=== PATIENT | male | born 1950 | race Caucasian/White ===

== ENCOUNTER 2019-12-17 09:58 | Outpatient (CLI) | payer MEDICARE, MEDICAID, SELFPAY ==
--- NOTE | ~2019-12-17 | XR_ITS ---
EXAMINATION: XR chest 2V 12/17/2019 10:28 INDICATION: Acute bronchitis PROCEDURE: 2 view chest COMPARISON: 04/01/2017 FINDINGS: The lungs are clear. The cardiomediastinal silhouette is within normal limits. There are no pleural effusions. There is no pneumothorax suspected. IMPRESSION: 1: NO ACUTE CARDIOPULMONARY DISEASE. Reviewed, dictated and finalized at location A.
== END 2019-12-17 09:59 | disposition home or self-care (01) ==
LOC: ANHIMG 10:09
PROVIDERS: PCP Emergency Medicine; Visit Provider Emergency Medicine
DX: J20.9 Acute bronchitis, unspecified (principal)
CPT/HCPCS: 71046

== ENCOUNTER 2020-07-27 16:57 | Inpatient (IN) | payer MEDICARE, MEDICAID, SELFPAY ==
--- NOTE | ~2020-07-27 | US_ITS ---
EXAMINATION:US venous doppler LE BI INDICATION:Leg edema TECHNIQUE: Multiple grayscale, color flow and Doppler images of the right and left lower extremity de ep venous systems were obtained and reviewed. COMPARISON:No prior studies for comparison. FINDINGS: The common femoral, superficial femoral and popliteal veins demonstrate normal respiratory variation, augmentation and compressibility. Color flow is also seen within the posterior tibial, pe roneal, greater saphenous and profunda veins. IMPRESSION: 1: No lower extremity deep venous thrombosis. Reviewed, dictated and finalized at location B.
--- NOTE | ~2020-07-27 | CT_ITS ---
EXAMINATION: CTA brain carotid EXAM DATE: 07/27/2020 18:05 INDICATION: Right leg hemiparesis. TECHNIQUE: Noncontrast head CT. Spiral CTA of the carotid arteries was performed with intravenous i njection 100 cc of Omnipaque 350. Axial, coronal, sagittal reformatted images reviewed. Additional r eformatted images created on dedicated 3-D workstation. NASCET comparable standard used to assess th e degree of arterial stenosis. Spiral CT angiogram cerebral arteries performed with the same intrave nous injection of contrast. Source images of the brain CTA transferred to dedicated workstation for 3 -D rotational image creation. Coronal, sagittal maximum intensity pixel images also reviewed. The d ose-length product (DLP) for this examination was 1881.37 mGy-cm. The exposure was tailored accordi ng to patient size, and iterative reconstruction (ASIR) was used as additional dose reduction techniq ue. Comparison is made to prior examination from 06/14/2019. FINDINGS: There is moderate left carotid bulb arterial sclerosis, 30 % stenosis. There is minimal rig ht carotid bulb plaque without stenosis (interval endarterectomy). There is moderate bilateral caroti d siphon arterial sclerosis, calcification is circumferential, causing approximately 20% stenosis on the left. The left A1 segment is not identified. There are bilateral posterior communicating artery d ominant posterior cerebral arteries. The left vertebral artery is occluded with reconstitution at the skull base (finding was present in 2019). There is no carotid or vertebral basilar arterial dissecti on or fibromuscular dysplasia. There are no cerebral artery aneurysms. There is symmetric cerebral ar dorinda arborization. The sagittal, transverse and sigmoid sinuses enhance normally, no venous sinus thr ombosis. Internal cerebral veins also enhance normally. Moderate size old left frontal lobe infarction. Large sized old right middle cerebral artery infarcti on. Small old right frontal lobe infarction. There is no acute intraparenchymal hemorrhage. No evide nce of intraparenchymal brain mass lesion. No evidence of acute infarction. There is no mass effect or midline shift. There is no obstructive hydrocephalus suspected. There are no extra-axial collecti ons. There are no calvarial acute fractures. Mild mucoperiosteal thickening in ethmoid sinuses. The mastoid air cells are aerated. Evaluation of lung apices demonstrate small regions of groundglass opacity, could be acute lung injur y from SARS-CoV-2, other infectious process, or edema. Please clinically correlate. IMPRESSION: 1. No acute intracranial findings. 2. Left carotid bulb 30% stenosis. Left carotid siphon 20% stenosis. 3. Interval right carotid endarterectomy, 0% stenosis. 4. Occluded left vertebral with reconstitution. 5. Scattered small upper lobe groundglass opacities; could be COVID-19, other infectious process, an d/or edema. I discussed no acute intracranial findings, acute lung airspace disease with Blanca Sr MD at 18:21 CDT. Reviewed, dictated and finalized at location A. IMPRESSION: 1. No acute intracranial findings. 2. Left carotid bulb 30% stenosis. Left carotid siphon 20% stenosis. 3. Interval right carotid endarterectomy, 0% stenosis. 4. Occluded left vertebral with reconstitution. 5. Scattered small upper lobe groundglass opacities; could be COVID-19, other infectious process, and/or edema. I discussed no acute intracranial findings, acute lung airspace disease with Liliya Sr MD at 07/27/2020 18:21 CDT.
--- NOTE | ~2020-07-27 | XR_ITS ---
EXAMINATION: XR chest 2V EXAM DATE: 07/27/2020 17:28 INDICATION: weakness/dizzy x3-4days, rt leg swelling/pain TECHNIQUE: Frontal and lateral projections of the chest obtained and reviewed. Comparison is made to prior examination from 12/17/2019. FINDINGS: There is cardiac monitoring device. Bilateral ill-defined right greater than left airspace disease probably acute infectious process or edema. The cardiomediastinal silhouette is prominent bu t magnified on this AP technique. Cardiac silhouette is stable in size compared to prior exam. There is no pneumothorax suspected. There are no pleural effusions. There are bony degenerative changes. IMPRESSION: Development of ill-defined bibasilar edema and/or infection. Reviewed, dictated and finalized at location A.
[2020-07-27 16:56] VITALS: BP 112/55; PULSE 82; RESP 20; TEMP 37.6; O2SAT 96
--- NOTE | 2020-07-27 17:04 | ECG_ITS ---
Measurements Intervals [place] Rate: 80 P: 44 WV: 188 QRS: -24 QRSD: 85 T: 20 QT: 338 QTc: 392 Interpretive Statements SINUS RHYTHM RSR' IN V1 OR V2, CONSIDER RIGHT VENTRICULAR HYPERTROPHY OR RIGHT VCD BASELINE ARTIFACT- II, III, AVR, AVF, V1-V2, V4-V6 BORDERLINE ECG Electronically Signed On 07-27-2020 19:30:02 CDT by Quan Kerr D.O.
[2020-07-27 17:11] LABS: Hematocrit 36.3 % (42.0-52.0); Hemoglobin 12.2 g/dL (14.0-18.0); Mean Corpuscular HGB Conc 33.6 g/dl (32-36); Mean Corpuscular Volume 86.2 fl (80-100); Mean Platelet Volume 9.6 fl (7.4-10.4); Platelet Count Result 203 k/mm3 (150-375); Red Blood Count 4.21 M/mm3 (4.6-6.20); Red Cell Distribution Width 15.1 % (11.5-14.5); White Blood Count 6.1 K/mm3 (4.5-10.0)
--- NOTE | 2020-07-27 17:12 | ED.GENADULT ---
HPI - General Adult General Chief complaint: Weakness Stated complaint: DIZZY,WEAK Time Seen by Provider: 07/27/20 16:59 Source: patient History of Present Illness HPI narrative: Patient is a 70 y/o male complaining of worsening right leg weakness starting this morning. He is not sure what exact time it started. He states that he has chronic right leg weakness due to previous stroke. He was sitting on the commode and had trouble getting up due to right leg weakness. He feels that his right leg is weaker than baseline today. He also has been feeling dizzy and light-headed starting 3 days ago. Related Data Home Medications Medication Instructions Recorded Confirmed albuterol sulfate [Ventolin HFA] 2 puff INHALATION Q4-6H PRN 07/27/20 07/27/20 amlodipine 5 mg PO DAILY 07/27/20 07/27/20 aspirin 325 mg PO DAILY 07/27/20 07/27/20 atorvastatin 10 mg PO HS 07/27/20 07/27/20 buspirone 30 mg PO Q12H 07/27/20 07/27/20 clopidogrel 75 mg PO DAILY 07/27/20 07/27/20 cyanocobalamin (vitamin B-12) 100 mcg MONTHLY 07/27/20 07/27/20 ergocalciferol (vitamin D2) 1,250 mcg PO WEEKLY 07/27/20 07/27/20 [Vitamin D2] famotidine 20 mg PO DAILY 07/27/20 07/27/20 fluticasone propionate 2 spray INTRANASAL DAILY 07/27/20 07/27/20 levothyroxine 175 mcg PO DAILY 07/27/20 07/27/20 loratadine 10 mg PO DAILY 07/27/20 07/27/20 losartan 100 mg PO DAILY 07/27/20 07/27/20 metolazone 5 mg PO DAILY 07/27/20 07/27/20 metoprolol tartrate 25 mg PO BID 07/27/20 07/27/20 montelukast 10 mg PO QPM 07/27/20 07/27/20 sertraline 50 mg PO DAILY 07/27/20 07/27/20 spironolactone 50 mg PO DAILY 07/27/20 07/27/20 tamsulosin 0.4 mg PO HS 07/27/20 07/27/20 venlafaxine 75 mg PO DAILY 07/27/20 07/27/20 Allergies Allergy/AdvReac Type Severity Reaction Status Date / Time Penicillins Allergy Unknown HIVES Verified 07/27/20 17:04 strawberry Allergy Unknown ITCHY Verified 07/27/20 17:04 acetaminophen Allergy Unknown Verified 07/27/20 17:04 [From [facility] 100] Latex, Natural Rubber Allergy Unknown Verified 07/27/20 17:04 propoxyphene Allergy Unknown Verified 07/27/20 17:04 [From [facility]-N 100] Review of Systems Constitutional: Constitutional: Reports as per HPI, Denies chills, Denies fever(s), Denies headache(s) and Denies weakness Eyes: Eyes: Denies blurry vision ENT: Denies headache(s) and Denies neck pain Cardiovascular: Cardiovascular: Denies chest pain and Denies dyspnea Respiratory: Respiratory: Denies cough and Denies dyspnea Gastrointestinal: Gastrointestinal: Denies abdominal pain, Denies diarrhea, Denies nausea and Denies vomiting Genitourinary: Genitourinary: Denies hematuria and Denies dysuria Musculoskeletal: Musculoskeletal: Denies back pain and Denies neck pain Neurologic: Reports dizziness, Denies headache(s) and Reports weakness (right leg) [facility] Past Medical History Medical History (Updated 07/28/20 @ 12:21 by Blanca Sr MD) Antithrombin III deficiency Benign prostatic hyperplasia Carotid artery disease Status post right carotid endarterectomy. CTA on showed 30% left carotid bulb stenosis and 20% left carotid siphon stenosis. 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 Chronic anemia Cognitive dysfunction Coronary artery disease With history of [place] status post PTCA/stent. 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 History of cardiac catheterization With history of PTCA/stent. History of hemorrhoidectomy History of loop recorder History of right-sided carotid endarterectomy (~10/11/16) Family History Family History (Updated 07/28/20 @ 00:59 by Maria D Alexandre PA-C) Other Congestive heart
[2020-07-27 17:23] LABS: Alanine Aminotransferase 29 U/L (4-50); Albumin Level 4.2 g/dL (3.5-5.1); Alkaline Phosphatase 50 U/L (38-126); Anion Gap 10 mmol/L (8-16); Aspartate Amino Transferase 42 U/L (17-59); Bilirubin,Total 0.4 mg/dL (0.2-1.3); Blood Urea Nitrogen 40 mg/dL (9-20); Calcium 8.7 mg/dL (8.4-10.2); Carbon Dioxide 23 mmol/L (22-30); Chloride 98 mmol/L (98-107); Estimated CRCL calculation 61 ml/min; Estimated Glomerular Filt Rate 54; Glucose 110 mg/dL (75-110); Potassium 4.4 mmol/L (3.4-5.0); Sodium 131 mmol/L (137-145)
[2020-07-27 17:34] LABS: Band Neutrophils Percent 13 % (0-6); Lymphocytes Absolute Manual 0.54 K/mm3 (1.1-4.5); Monocytes Absolute Manual 0.48 K/mm3 (0.1-0.90); Monocytes Percent Manual 8 % (3-9); Neutrophils Absolute Manual 5.06 K/mm3 (1.3-6.7); Neutrophils Percent Manual 70 % (46-73); Total Cells Counted 100
[2020-07-27 17:35] LABS: Anisocytosis 2+ (NORMAL); Platelet Estimate Adequate (Adequate)
[2020-07-27 18:04] LABS: Add Urine Microscopic? YES; Appearance Urine Cloudy (Clear); Bacteria Urine Trace /hpf; Bilirubin Urine Negative (Negative); Blood Urine 2+ (Negative); Color Urine Yellow (Yellow); Glucose Urine UA Negative (Negative); Ketones Urine Negative (Negative); Leukocyte Esterase Ur Trace LEU/UL (Negative); Mucus Urine Few /lpf; Nitrate Urine Negative (Negative); Protein Urine Negative (Negative); RBC Urine 51-75 /hpf (0-2); Specific Grav Ur 1.019 (1.001-1.035); Squamous Epithelial Cell Urine Many /hpf (Few); Urobilinogen Urine Negative mg/dL (<2.0)
[2020-07-27 19:15] VITALS: BP 101/65; PULSE 75; RESP 20; TEMP 37; O2SAT 96
[2020-07-27 19:30] VITALS: BP 115/52; PULSE 72; RESP 20; TEMP 36.6; O2SAT 95; BMI 32.9
[2020-07-27 20:00] VITALS: PULSE 76
--- NOTE | 2020-07-27 20:16 | ADMGEN ---
This patient, Emile Scott, was admitted to [facility] Room 328-01. Patient/family oriented to hospital policies and general routines including ID bracelet, bed and alarms, visiting hours, pain management, procedures, bathroom and other care routines, personal items, smoking policy, room service/diet, and visiting hours. Information on how to activate the Rapid Response Team has been discussed. Patient/Family are encouraged to report perceived risks to care and to ask questions if they do not understand what they are told or what they should do.
--- NOTE | 2020-07-27 23:00 | PM.IMHP ---
H&P: HPI History of Present Illness Date/Time: 07/27/20 23:00 Chief complaint: Generalized weakness and dizziness. Narrative: Emile Scott is a 70-year-old male with history of CVA x2 with residual right lower extremity weakness, carotid artery disease status post right carotid endarterectomy, coronary artery disease with history of PTCA/stent, hypertension, hyperlipidemia, and hypothyroidism who presented to the emergency department earlier today via EMS from [facility] for evaluation of generalized weakness and dizziness. He notes progressive weakness over the past 3 to 4 days to the point where he was unable to get himself off of the commode today. He has residual right lower extremity weakness from a previous stroke but notes that it feels much more weak today than it had been previously. Additionally he has had dizziness that he has a difficult time qualifying but it sounds more so like lightheadedness. On exam he has pretty significant bilateral lower extremity edema and he does report that his right leg seems to be more swollen than usual. He has been eating and drinking as per usual but tells me he feels a bit dehydrated. He denies headache, vertigo, acute auditory visual changes, and paresthesias. No chest pain or palpitations. He denies shortness of breath, orthopnea, and PND. He denies cough but did cough several times throughout the interview, a dry hacking cough. No facial droop, dysarthria, or dysphagia. He denies concerns for aspiration. He denies history of congestive heart failure and obstructive sleep apnea. No sick contacts to his knowledge. He does live in assisted living facility but ?they do not tell us if anybody has had COVID or not.? Review of Systems Review of Systems: Narrative: Twelve systems were reviewed with pertinent positives and negatives as per HPI. He does think he has gained a little bit of weight. He is not sure if he has had any recent change in medications. No sinus congestion, rhinorrhea, otalgia, or odynophagia. He denies myalgias and arthralgias. Appetite is good. No nausea, vomiting, or diarrhea. He denies dysuria and change in urine output. No known history of venous thromboembolism. Except as documented, all other systems were reviewed and are negative. [facility] Past Medical History Medical History (Updated 07/28/20 @ 01:17 by Maria D Alexandre PA-C) Antithrombin III deficiency Benign prostatic hyperplasia Carotid artery disease Status post right carotid endarterectomy. CTA on showed 30% left carotid bulb stenosis and 20% left carotid siphon stenosis. 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 Chronic anemia Cognitive dysfunction Coronary artery disease With history of [place] status post PTCA/stent. 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 History of cardiac catheterization With history of PTCA/stent. History of hemorrhoidectomy History of loop recorder History of right-sided carotid endarterectomy (~10/11/16) Family History Family History (Updated 07/28/20 @ 00:59 by Maria D Alexandre PA-C) Other Congestive heart failure Coronary artery disease Diabetes mellitus Social History Social History (Updated 07/28/20 @ 01:01 by Maria D Alexandre PA-C) Social History: Surrogate decision maker: Stacey Perez, friend. Code status: Full code. Smoking status: Former smoker Tobacco type: cigarettes Additional smoking assessment comments: Patient states he smoked one pack of cigarettes a week. Alcohol intake: former Substance use: never Additional living arrangements comments: Lives in assisted living at [facility]
[2020-07-28] VITALS (11 sets, daily range): BP systolic 98–155; BP diastolic 53–104; PULSE 57–97; RESP 18–20; TEMP 36.4–37; O2SAT 93–96
[2020-07-28] MEDS: busPIRone HCL 10 MG TABLET 30 MG PO ×3 (00:36→20:37)
[2020-07-28] MEDS: ATORVASTATIN 10 MG TABLET PO ×2 (00:37→20:37)
[2020-07-28] MEDS: METOPROLOL TARTRATE 25 MG TABLET PO ×3 (00:37→20:38)
[2020-07-28] MEDS: TAMSULOSIN HCL 0.4 MG CAPSULE PO ×2 (00:37→20:39)
[2020-07-28] MEDS: MONTELUKAST SODIUM 10 MG TABLET PO ×2 (00:37→17:26)
--- NOTE | 2020-07-28 01:15 | ECHO_ITS ---
Patient Info Name: Emile Scott Age: 70 years : 1950 Gender: Male Ht: 72 in Wt: 240 lbs BSA: 2.38 m2 HR: 71 bpm BP: 122 / 59 mmHg Heart Rhythm: Sinus Rhythm Technical Quality: Good Exam Date: 07/28/2020 3:00 PM Exam Location: [facility] Patient Status: Inpatient Admit Date: 07/28/2020 Staff Ordering Physician: Maria D Alexandre PA-C General Store Manager: Noble Cintron RDCS, RT Attending Provider: Damir Fu PA-C Referring Physician: Baldomero GRANADOS; Exam Type: CA echo doppler color flow Study Info Indications R60.9 - Edema, unspecified Complete two-dimensional, color flow and Doppler transthoracic echocardiogram is performed. Summary 1. Complete two-dimensional, color flow and Doppler transthoracic echocardiogram is performed. 2. Left ventricular chamber dimension is normal. 3. Left ventricular systolic function is normal, estimated at 60-65%. 4. The left ventricular diastolic function is grade I diastolic dysfunction. 5. The anterior mitral valve leaflet is thickened. No mitral regurgitation. 6. Compared to prior exam from 2018 no significant difference. Left Ventricle Left ventricular chamber dimension is normal. Left ventricular systolic function is normal, estimated at 60-65%. The left ventricular diastolic function is grade I diastolic dysfunction. Right Ventricle Right ventricular chamber dimension is normal. Left Atria Left atrial chamber dimension is normal. Right Atria Right atrial chamber dimension is normal. Aortic Valve The aortic valve is trileaflet. There is mild aortic valve sclerosis. Pulmonic Valve The pulmonic valve is not well visualized. Mitral Valve The mitral valve has thickened leaflets. The anterior mitral valve leaflet is thickened. No mitral regurgitation. Tricuspid Valve The tricuspid valve leaflets are normal. Pericardium/Pleural The pericardium appears normal. Aorta The aortic root size at the sinus of Valsalva is normal. Left Ventricular Outflow Tract Name Value Normal LVOT 2D LVOT Diameter 2.5 cm LVOT Doppler LVOT Peak Velocity 82 cm/s LVOT Peak Gradient 3 mmHg LVOT Mean Gradient 1 mmHg LVOT VTI 14 cm LVOT VTI/AV VTI Ratio 0.5 LVOT Stroke Volume 67 ml LVOT CO 4.9 l/min LVOT CI 2.0 l/min/m2 Mitral Valve Name Value Normal MV Doppler MV Decel [place] 241 cm/s2 MV PHT 81 ms MV Area (PHT) 2.7 cm2 4.0-5.0 MV Diastolic Function MV E Peak Velocity 67 cm
[2020-07-28] MEDS: LEVOTHYROXINE SODIUM 75 MCG TABLET PO (05:31)
[2020-07-28] MEDS: LEVOTHYROXINE SODIUM 100 MCG TABLET PO (05:31)
[2020-07-28 06:08] LABS: Basophils Percent Auto 0.5 % (0.2-1.2); Hemoglobin 11.8 g/dL (14.0-18.0); Immature Granulocyte Absolute 0.04 K/mm3 (0.00-0.031); Immature Granulocyte Percent A 0.9 % (0-0.5); Lymphocytes Absolute Auto 0.65 K/mm3 (0.9-3.2); Lymphocytes Percent Auto 14.9 % (18.3-44.2); Mean Corpuscular HGB Conc 32.8 g/dl (32-36); Mean Corpuscular Hemoglobin 28.1 pg (26-34); Mean Corpuscular Volume 85.7 fl (80-100); Mean Platelet Volume 9.4 fl (7.4-10.4); Monocytes Absolute Auto 0.5 K/mm3 (0.1-0.6); Monocytes Percent Auto 11.2 % (2.6-8.5); Neutrophils Absolute Auto 3.2 K/mm3 (1.3-6.7); Neutrophils Percent Auto 72.5 % (45.5-73.1); Platelet Count Result 188 k/mm3 (150-375); Red Cell Distribution Width 15.1 % (11.5-14.5); White Blood Count 4.4 K/mm3 (4.5-10.0)
[2020-07-28 06:17] LABS: Anion Gap 9 mmol/L (8-16); Blood Urea Nitrogen 38 mg/dL (9-20); CRP 4.3 mg/dL (<1.0); Calcium 8.6 mg/dL (8.4-10.2); Carbon Dioxide 24 mmol/L (22-30); Chloride 98 mmol/L (98-107); Estimated CRCL calculation 60 ml/min; Estimated Glomerular Filt Rate 54; Glucose 97 mg/dL (75-110); Potassium 3.7 mmol/L (3.4-5.0); Sodium 131 mmol/L (137-145)
[2020-07-28 06:23] LABS: NT Pro B Type Natriuretic Pept 81 PG/ML (5-100)
[2020-07-28 06:52] LABS: Anisocytosis 1+ (NORMAL); Microcytosis 1+ (NORMAL); Ovalocytes 1+ (NORMAL); Platelet Estimate Adequate (Adequate)
[2020-07-28] MEDS: ASPIRIN 325 MG ENTERIC TABLET PO (08:04)
[2020-07-28] MEDS: VENLAFAXINE HCL XR 75 MG CAP.ER.24H PO (08:04)
[2020-07-28] MEDS: FAMOTIDINE 20 MG TABLET PO (08:04)
[2020-07-28] MEDS: metOLazone 5 MG TABLET PO (08:04)
[2020-07-28] MEDS: amLODIPine BESYLATE 5 MG TABLET PO (08:05)
[2020-07-28] MEDS: LORATADINE 10 MG TABLET PO (08:05)
[2020-07-28] MEDS: LOSARTAN POTASSIUM 100 MG TABLET PO (08:05)
[2020-07-28] MEDS: CLOPIDOGREL BISULFATE 75 MG TABLET PO (08:05)
[2020-07-28] MEDS: SERTRALINE HCL 50 MG TABLET PO (08:05)
[2020-07-28] MEDS: SPIRONOLACTONE 50 MG TABLET PO (08:06)
[2020-07-28] MEDS: FLUTICASONE PROPIONATE 0.05% NA SPR 16 GM BTL (*BKC) 2 SPRAY NASAL (11:31)
--- NOTE | 2020-07-28 11:45 | PCSTNOTE ---
Please refer to the Bedside Swallow Evaluation in the EMR.
[2020-07-28 13:57] LABS: SARS-CoV-2 RNA PCR Positive
--- NOTE | 2020-07-28 15:07 | PC.NURSE ---
This nurse called [facility] in [place], to find out which loop recorder this patient has. Voicemail left for the nurse that takes care of this patient. Awaiting call back.
--- NOTE | 2020-07-28 15:16 | PM.IMPN ---
Progress Note: A&P Assessment and Plan (1) Right leg weakness: Code(s): R29.898 - Other symptoms and signs involving the musculoskeletal system Status: Acute Assessment and Plan: The patient has been admitted to the hospitalist service for further evaluation of weakness over last several days, focally increasing weakness in the right lower extremity. Patient states this is slightly improved today, although nursing reports patient did not perform well with PT/OT today. Patient tested positive for COVID virus today which could very well be the underlying etiology behind worsening weakness, however CVA not excludable. Given his history of CVA he will be monitor on telemetry and we will obtain a brain MRI and Echo today to rule out acute CVA Will continue with PT/OT Consider Neuro consult if no improvement continue supportive care for COVID Monitor for improvement Consider possible placement at time of discharge for further therapy (2) COVID-19: Code(s): U07.1 - COVID-19 Status: Acute Assessment and Plan: Patient tested given groundglass opacities noted in lung apices. Patient also experiencing a dry cough. He is unaware of any positive COVID contacts at [facility]. Patient is not hypoxic on RA. This could very well account for patient's increasing weakness over the past several days. continue droplet isolation Supportive care with PRN albuterol, mucinex for cough, and PRN tylenol for fevers Supplemental O2 as needed if patient becomes hypoxic Monitor (3) Carotid artery disease: Code(s): I77.9 - Disorder of arteries and arterioles, unspecified Status: Inactive Assessment and Plan: CT of the head and neck did show left carotid artery disease as detailed above. Will continue home dual platelet therapy and statin He will likely need f/u with his vascular surgeon after discharge (4) Occlusion of left vertebral artery: Code(s): I65.02 - Occlusion and stenosis of left vertebral artery Status: Acute Assessment and Plan: CT of the head and neck did show the left vertebral artery is occluded with reconstitution. He denies any dizziness at this time. Will continue home dual platelet therapy and statin F/u with vascular surgeon after discharge (5) Abnormal finding on lung imaging: Code(s): R91.8 - Other nonspecific abnormal finding of lung field Status: Acute Assessment and Plan: Groundglass opacities noted at lung apices. Likely due to positive COVID 19 infection/PNA given his dry cough Continue supportive care for COVID infection Monitor (6) Chronic anemia: Code(s): D64.9 - Anemia, unspecified Status: Acute Assessment and Plan: Appears to be stable with no signs of acute blood loss. Monitor Transfuse PRN (7) Hyponatremia: Code(s): E87.1 - Hypo-osmolality and hyponatremia Status: Acute Assessment and Plan: Na 131 today. stable. Possibly due to hypervolemia Monitor daily (8) Hypertension: Code(s): I10 - Essential (primary) hypertension Status: Inactive Assessment and Plan: BP reasonable today. 120s sys lying. 140s sys when standing Continue home antihypertensives Monitor (9) Hypothyroidism: Code(s): E03.9 - Hypothyroidism, unspecified Status: Inactive Assessment and Plan: TSH WNL Continue home levothyroxine (10) Depression with anxiety: Code(s): F41.8 - Other specified anxiety disorders Status: Inactive Assessment and Plan: No acute issues Continue home medication
--- NOTE | 2020-07-28 15:42 | PC.NURSE ---
TIBURCIO Melchor was called and asked if she new what type of loop recorder this patient had so this patient can have his MRI. Jill stated that she did not know what type of loop recorder the patient has.
--- NOTE | 2020-07-28 16:41 | PC.NURSE ---
This nurse spoke with Kevin in MRI. This patient states he has a loop recorder under his skin but does not know which kind. Kevin in MRI said he would look into weather or not he could do this MRI tomorrow morning and would be calling back with a response. Damir MONTIEL is notified of this.
[2020-07-28] MEDS: guaiFENesin 12 HR 600 MG TABCR 1200 MG PO (20:37)
[2020-07-29] VITALS: BP 100/50; PULSE 63; PULSE 66; RESP 20; TEMP 36.6; O2SAT 93
[2020-07-29 04:00] VITALS: BP 114/66; PULSE 70; PULSE 71; RESP 22; TEMP 36.3; O2SAT 94
[2020-07-29] MEDS: LEVOTHYROXINE SODIUM 75 MCG TABLET PO (05:33)
[2020-07-29] MEDS: LEVOTHYROXINE SODIUM 100 MCG TABLET PO (05:33)
[2020-07-29 06:33] LABS: Basophils Percent Auto 0.3 % (0.2-1.2); Eosinophils Percent Auto 0.2 % (0-4.4); Hematocrit 34.5 % (42.0-52.0); Hemoglobin 11.2 g/dL (14.0-18.0); Immature Granulocyte Absolute 0.03 K/mm3 (0.00-0.031); Immature Granulocyte Percent A 0.5 % (0-0.5); Lymphocytes Absolute Auto 0.79 K/mm3 (0.9-3.2); Lymphocytes Percent Auto 13.8 % (18.3-44.2); Mean Corpuscular HGB Conc 32.5 g/dl (32-36); Mean Corpuscular Hemoglobin 28.4 pg (26-34); Mean Corpuscular Volume 87.6 fl (80-100); Mean Platelet Volume 9.6 fl (7.4-10.4); Monocytes Absolute Auto 0.5 K/mm3 (0.1-0.6); Monocytes Percent Auto 7.9 % (2.6-8.5); Neutrophils Absolute Auto 4.4 K/mm3 (1.3-6.7); Neutrophils Percent Auto 77.3 % (45.5-73.1); Platelet Count Result 190 k/mm3 (150-375); Red Blood Count 3.94 M/mm3 (4.6-6.20); Red Cell Distribution Width 15.1 % (11.5-14.5); White Blood Count 5.7 K/mm3 (4.5-10.0)
[2020-07-29 06:53] LABS: Alanine Aminotransferase 28 U/L (4-50); Albumin Level 3.4 g/dL (3.5-5.1); Alkaline Phosphatase 50 U/L (38-126); Anion Gap 8 mmol/L (8-16); Aspartate Amino Transferase 56 U/L (17-59); Bilirubin,Total 0.5 mg/dL (0.2-1.3); Blood Urea Nitrogen 40 mg/dL (9-20); Calcium 8.4 mg/dL (8.4-10.2); Carbon Dioxide 27 mmol/L (22-30); Chloride 97 mmol/L (98-107); Estimated CRCL calculation 59 ml/min; Estimated Glomerular Filt Rate 50; Glucose 94 mg/dL (75-110); Lactate Dehydrogenase 608 U/L (313-618); Magnesium 2.2 mg/dL (1.6-2.3); Potassium 3.5 mmol/L (3.4-5.0); Sodium 132 mmol/L (137-145)
[2020-07-29 08:00] VITALS: BP 110/65; PULSE 68; PULSE 72; RESP 16; TEMP 36.3; O2SAT 94
[2020-07-29 09:49] VITALS: PULSE 72
[2020-07-29] MEDS: METOPROLOL TARTRATE 25 MG TABLET PO (09:49)
[2020-07-29] MEDS: ENOXAPARIN 40 MG/0.4 ML SYRINGE SUB-Q (09:49)
[2020-07-29] MEDS: FLUTICASONE PROPIONATE 0.05% NA SPR 16 GM BTL (*BKC) 2 SPRAY NASAL (09:49)
[2020-07-29] MEDS: CLOPIDOGREL BISULFATE 75 MG TABLET PO (09:49)
[2020-07-29] MEDS: busPIRone HCL 10 MG TABLET 30 MG PO (09:50)
[2020-07-29] MEDS: metOLazone 5 MG TABLET PO (09:50)
[2020-07-29] MEDS: FAMOTIDINE 20 MG TABLET PO (09:50)
[2020-07-29] MEDS: guaiFENesin 12 HR 600 MG TABCR 1200 MG PO (09:50)
[2020-07-29] MEDS: FINASTERIDE 5 MG TABLET PO (09:50)
[2020-07-29] MEDS: SERTRALINE HCL 50 MG TABLET PO (09:51)
[2020-07-29] MEDS: ASPIRIN 325 MG ENTERIC TABLET PO (09:51)
[2020-07-29] MEDS: amLODIPine BESYLATE 5 MG TABLET PO (09:51)
[2020-07-29] MEDS: LORATADINE 10 MG TABLET PO (09:51)
[2020-07-29] MEDS: SPIRONOLACTONE 50 MG TABLET PO (09:51)
[2020-07-29] MEDS: LOSARTAN POTASSIUM 100 MG TABLET PO (09:51)
[2020-07-29] MEDS: VENLAFAXINE HCL XR 75 MG CAP.ER.24H PO (09:51)
[2020-07-29] MEDS: ACETAMINOPHEN 325 MG TABLET 650 MG PO (09:55)
--- NOTE | 2020-07-29 10:53 | PM.DS ---
DS: Admitting Diagnosis Admitting Diagnosis Admitting Diagnosis: Generalized weakness and dizziness. DS: Discharge Diagnosis Discharge Diagnosis (1) Right leg weakness: Code(s): R29.898 - Other symptoms and signs involving the musculoskeletal system Status: Acute Assessment and Plan: The patient has been admitted to the hospitalist service for further evaluation of weakness over last several days, focally increasing weakness in the right lower extremity. Patient states this has improved again today. Patient tested positive for COVID this hospital stay which could very well be the underlying etiology behind worsening weakness. Acute CVA felt to be less likely given CTA head and neck results; patient unable to obtain brain MRI given loop recorder. Given recent COVID positive testing, and likely resultant weakness, patient would benefit from PT/OT at [facility] for further rehab prior to returning to [facility] Will continue with PT/OT Will discharge today to [facility] for further PT/OT continue supportive care for COVID F/u with PCP and Neurologist as outpatient (2) COVID-19: Code(s): U07.1 - COVID-19 Status: Acute Assessment and Plan: Patient tested given groundglass opacities noted in lung apices. Patient also experiencing a dry cough which he thinks has improved. He is unaware of any positive COVID contacts at [facility]. Patient is not hypoxic on RA again today. This could very well account for patient's increasing weakness over the past several days. continue isolation at SNF facility Supportive care with PRN albuterol, mucinex for cough, and PRN tylenol for fevers F/u with PCP (3) Carotid artery disease: Code(s): I77.9 - Disorder of arteries and arterioles, unspecified Status: Inactive Assessment and Plan: CT of the head and neck did show left carotid artery disease as detailed above. Will continue home dual platelet therapy and statin He will likely need f/u with his vascular surgeon after discharge (4) Occlusion of left vertebral artery: Code(s): I65.02 - Occlusion and stenosis of left vertebral artery Status: Acute Assessment and Plan: CT of the head and neck did show the left vertebral artery is occluded with reconstitution. He denies any dizziness at this time. Will continue home dual platelet therapy and statin F/u with vascular surgeon after discharge (5) Abnormal finding on lung imaging: Code(s): R91.8 - Other nonspecific abnormal finding of lung field Status: Acute Assessment and Plan: Groundglass opacities noted at lung apices. Likely due to positive COVID 19 infection/PNA given his dry cough Continue supportive care for COVID infection (6) Chronic anemia: Code(s): D64.9 - Anemia, unspecified Status: Acute Assessment and Plan: Appears to be stable with no signs of acute blood loss. F/u with PCP (7) Hyponatremia: Code(s): E87.1 - Hypo-osmolality and hyponatremia Status: Acute Assessment and Plan: Na 132 today. improvement. Possibly due to hypervolemia Will do BMP in 1 week for further monitoring (8) Hypertension: Code(s): I10 - Essential (primary) hypertension Status: Inactive Assessment and Plan: BP reasonable today. 110s sys today Continue home antihypertensives F/u with PCP (9) Hypothyroidism: Code(s): E03.9 - Hypothyroidism, unspecified Status: Inactive Assessment and Plan: TSH WNL Continue home levothyroxine (10) Depression with anxiety: Code(s): F41.8 - Other specified anxiety disorder
[2020-07-29 12:00] VITALS: BP 107/65; PULSE 70; PULSE 86; RESP 18; TEMP 36.6; O2SAT 97
[2020-07-29 16:00] VITALS: BP 107/55; PULSE 77; RESP 16; TEMP 36.6; O2SAT 92
== END 2020-07-29 17:50 | DRG 177 ==
LOC: ANHED 18:50 → ANH3MEDSUR 19:02
PROVIDERS: Physician Assistant; Admitting Provider Family Medicine; Emergency Provider Emergency Medicine; PCP Emergency Medicine; Visit Provider Family Medicine
DX: U07.1 COVID-19 (principal); J12.89 Other viral pneumonia; D68.59 Other primary thrombophilia; E87.1 Hypo-osmolality and hyponatremia; I65.01 Occlusion and stenosis of right vertebral artery; I69.341 Monoplegia of lower limb following cerebral infarction affecting right dominant side; I65.22 Occlusion and stenosis of left carotid artery; R29.898 Other symptoms and signs involving the musculoskeletal system; D64.9 Anemia, unspecified; N40.1 Benign prostatic hyperplasia with lower urinary tract symptoms; R33.8 Other retention of urine; I25.10 Atherosclerotic heart disease of native coronary artery without angina pectoris; I25.2 Old myocardial infarction; R41.9 Unspecified symptoms and signs involving cognitive functions and awareness; F41.8 Other specified anxiety disorders; I10 Essential (primary) hypertension; K21.9 Gastro-esophageal reflux disease without esophagitis; E78.5 Hyperlipidemia, unspecified; E03.9 Hypothyroidism, unspecified; M19.90 Unspecified osteoarthritis, unspecified site; Z87.891 Personal history of nicotine dependence; Z95.5 Presence of coronary angioplasty implant and graft; Z98.890 Other specified postprocedural states
CPT/HCPCS: 36415; 51701; 70496; 70498; 71046; 80048; 80053; 81001; 82728; 83615; 83735; 83880; 84443; 85025; 86140; 87086; 87088; 87635; 92610; 93005; 93306; 93970; 97110; 97161; 97165; 99285; A9270; C9803; G0378; J1650; Q9967; U0003

== ENCOUNTER 2020-12-01 09:23 | Inpatient (IN) | payer MEDICARE, MEDICAID, SELFPAY ==
[2020-12-01] VITALS (57 sets, daily range): BP systolic 56–137; BP diastolic 36–125; PULSE 82–110; RESP 15–27; TEMP 36.8–37.4; O2SAT 77–100; BMI 26.4
--- NOTE | ~2020-12-01 | XR_ITS ---
EXAMINATION: XR chest 1V portable DATE: 12/03/2020 05:23 INDICATION: Septic shock TECHNIQUE: frontal view of the chest was obtained. COMPARISON: Chest radiograph dated 12/01/2020 FINDINGS: Left internal jugular central venous catheter with distal tip at the confluence of the left brachioce phalic vein and the superior vena cava. Lungs are clear with no focal airspace opacities, pulmonary edema, pleural effusion or pneumothorax. The cardiomediastinal silhouette is normal. Left pectoral implantable monitor car operator. IMPRESSION: 1. No acute cardiopulmonary disease. Reviewed, dictated and finalized at location A. IONEER ART
--- NOTE | ~2020-12-01 | NM_ITS ---
EXAMINATION: NM hepatobiliary wo pharm DATE: 12/11/2020 16:11 INDICATION: Elevated liver function tests. Abnormal ultrasound. COMPARISON: Ultrasound dated 12/10/2020 TECHNIQUE: 4 mCi Tc-99m mebrofenin (Choletec) was administered intravenously. Scintigraphic images o f the abdomen were obtained for one hour. At the 1 hour time point 2 mg of morphine was administered IV. FINDINGS: There is normal clearance of radiotracer from the blood pool. There is homogeneous tracer u ptake by the liver. Activity progresses to the common bile duct with activity first evident in the b owel at 15 minutes. There is a persistent photopenic defect in the region of the gallbladder includin g in the 30 minutes following morphine administration which raises concern for acute cholecystitis. S mall amount of refluxed activity is seen in the stomach on the later post morphine administration xenia ges. The activity was administered through a left internal jugular central venous catheter with uncha nged retained activity seen along the course of the catheter seen throughout the course of the study. IMPRESSION: 1. Nonvisualization of the gallbladder including in the 30 minutes following morphine injection whic h could be consistent with acute cholecystitis. Reviewed, dictated and finalized at location B. LOPER RELATIONS MANAGER IMPRESSION: 1. Nonvisualization of the gallbladder including in the 30 minutes following m orphine injection which could be consistent with acute cholecystitis.
--- NOTE | ~2020-12-01 | XR_ITS ---
XR chest 1V portable DATE: 12/01/2020 10:40 INDICATION: Shortness of breath TECHNIQUE: Portable upright AP chest on December 01, 2020 at 1043 hours COMPARISON: 07/27/2020 AP and lateral chest FINDINGS: Patchy infiltrates are noted in the mid and particularly lower lung zones. Differential stewart gnosis includes pneumonia, pulmonary edema, aspiration pneumonitis. Heart size is within normal limits. campus monitor device overlies the lower left chest. There is ao rtic arch calcification and mild aortic unfolding. There is no apparent pleural effusion. No pneumothorax is evident. Bilateral apical capping. There are osteoarthritic changes at the glenohumeral joint. IMPRESSION: Patchy mid and lower lung field infiltrates; differential diagnosis includes pneumonia, p ulmonary edema, aspiration pneumonitis Reviewed, dictated and finalized at location A. T COIL WINDER IMPRESSION: Patchy mid and lower lung field infiltrates; differential diagnosis includes pneumonia, pulmonary edema, aspiration pneumonitis
--- NOTE | ~2020-12-01 | CT_ITS ---
EXAMINATION: CT abdomen pelvis wo con EXAM DATE: 12/12/2020 12:55 INDICATION: RUQ pain, cholecystitis. TECHNIQUE: Spiral CT of the abdomen and pelvis was performed without contrast. Axial, coronal and s agittal images were reviewed. The dose-length product (DLP) for this examination was 919.59 mGy-cm. The exposure was tailored according to patient size (auto mA exposure control), and iterative recons truction (ASIR) was used as additional dose reduction technique. Comparison is made to prior examinat ion from 07/27/2016. Correlation also made to recent HIDA scan and right upper quadrant sonogram. FINDINGS: The liver, spleen, adrenal glands and pancreas are unremarkable. The gallbladder is severe ly distended with extensive adjacent inflammation, appearance is consistent with acute cholecystitis. Bilateral nephrolithiasis. The prostate is unremarkable. The bladder is unremarkable. There is n o retroperitoneal or pelvic lymphadenopathy. There is moderate scattered arteriosclerotic disease. Small bilateral inguinal fat-containing hernias. The appendix is normal. The stomach and small bowel are unremarkable. There is sigmoid colonic redu ndancy and air-fluid level. Mild rectosigmoid wall edema. Correlate for diarrhea, colitis. No free intraperitoneal gas. There is cardiomegaly. There is multi segmental right lower lobe atelectasis. Trace bilateral pleural effusions. Bilateral gynecomastia. The lung bases are unremarkable. There a re no osteoblastic or osteolytic lesions identified. IMPRESSION: 1. Acute cholecystitis. 2. Rectosigmoid fluid and wall edema, mild presacral fat stranding. Consider diarrhea and colitis. 3. Right lower lobe multisegmental atelectasis. Trace pleural effusions. 4. Bilateral nonobstructing calyceal stones. 5. Small inguinal fat-containing hernias. Reviewed, dictated and finalized at location A. ING OPERATOR HELPER IMPRESSION: 1. Acute cholecystitis. 2. Rectosigmoid fluid and wall edema, mild presacral fat stranding. Consider d iarrhea and colitis. 3. Right lower lobe multisegmental atelectasis. Trace pleural effusions. 4. Bilateral nonobstructing calyceal stones. 5. Small inguinal fat-containing hernias.
--- NOTE | ~2020-12-01 | US_ITS ---
EXAMINATION: US right upper quadrant DATE: 12/10/2020 09:23 INDICATION: Abdominal pain. TECHNIQUE: Multiple grayscale and Doppler ultrasound images of the abdomen were obtained. COMPARISON: CT abdomen and pelvis 07/27/2016, abdomen ultrasound 12/02/2020 FINDINGS: The pancreas is obscured by bowel gas. The liver is normal without focal lesion. There is n ormal flow in main portal vein. The gallbladder is distended and contains sludge. Gallbladder wall th ickening is noted. No visible gallstones. There was no sonographic Cintron sign. IMPRESSION: 1. Distended gallbladder with sludge and gallbladder wall thickening, which is indeterminate for acut e cholecystitis. Consider hepatobiliary scintigraphy. Reviewed, dictated and finalized at location A. JACK NOZZLEMAN IMPRESSION: 1. Distended gallbladder with sludge and gallbladder wall thickening, which is indeterminate for acute cholecystitis. Consider hepatobiliary scintigraphy.
--- NOTE | ~2020-12-01 | XR_ITS ---
XR chest port-a-cath/central DATE: 12/01/2020 13:07 INDICATION: Central line placement TECHNIQUE: Portable AP chest on December 01, 2020 at 1308 hours COMPARISON: December 01, 2020 portable AP chest at 1043 hours FINDINGS: There is interval placement of left internal jugular central venous catheter, catheter tip overlying the superior vena cava. No pneumothorax is evident. There is mild bilateral apical capping. front desk monitor device overlies the lower left chest. Normal heart size. Coronary artery stent or coronary artery calcification is noted. Mild aortic unfol ding. Mild infiltrate or atelectasis is suggested in the lower lung zones. No pleural effusion is evident. IMPRESSION: Left internal jugular central venous catheter placement, distal tip overlying superior ve na cava; no evidence of pneumothorax Reviewed, dictated and finalized at Location A. Reviewed, dictated and finalized at location A. OUR STITCHER IMPRESSION: Left internal jugular central venous catheter placement, distal tip overlying superior vena cava; no evidence of pneumothorax
--- NOTE | ~2020-12-01 | US_ITS ---
EXAMINATION: US renal BI EXAM DATE: 12/02/2020 10:06 INDICATION: Acute kidney injury. TECHNIQUE: Multiple grayscale and Doppler images of the kidneys were obtained (by a technologist who performed the scan) and subsequently reviewed. Comparison is made to prior examination from 12/02/2020 . FINDINGS: Suboptimal exam, kidneys poorly visualized. Right kidney: There is normal contour and echogenicity. It measures 9.8 x 4.8 x 4.7 centimeters. Th ere are no focal renal lesions identified. There is no hydronephrosis. Left kidney: There is normal contour and echogenicity. It measures 9.8 x 5.5 x 4.7 centimeters. The re are no focal renal lesions identified. There is no hydronephrosis. Sutton catheter balloon anchor within collapsed bladder. IMPRESSION: 1. Suboptimal exam, but no hydronephrosis suspected. Reviewed, dictated and finalized at location B. CIATE PROGRAMMER
--- NOTE | ~2020-12-01 | US_ITS ---
EXAMINATION: US right upper quadrant DATE: 12/02/2020 10:06 INDICATION: Elevated liver function tests TECHNIQUE: Multiple grayscale and Doppler ultrasound images of the abdomen were obtained. COMPARISON: The abdomen and pelvis dated 07/27/2016 FINDINGS: Visual is portions of the body of the pancreas is normal. The head and tail of the pancreas are obscu red by shadowing gas. Liver has normal echogenicity and contour, with a smooth surface. No liver lesi on identified. No intrahepatic biliary duct dilation suspected. Portal venous flow was seen in the he patopetal, normal direction and has normal Doppler waveform. Suboptimal visualization of the gallblad anamaria which is partially obscured by the ribs. The gallbladder is distended to 5.2 cm in diameter. Mild gallbladder wall thickening measuring up to 3 mm in thickness. No evident shadowing cholelithiasis. Sonographic Cintron sign was reported as negative by the analysis analyst.The common bile duct measures 3 m m in maximal diameter which is normal. IMPRESSION: 1. Suboptimal visualization of the gallbladder which demonstrates mild dilation and mild wall thicken ing but no evident cholelithiasis and with negative Cintron sign to more specifically suggest acute ch olecystitis. In addition to acute cholecystitis the differential for the wall thickening would includ e heart, liver renal failure, sepsis or other generalized edema forming states. If there is clinical concern for acute cholecystitis could consider HIDA scan for further evaluation. 2. No evident intra or extra hepatic biliary ductal dilation with normal caliber common bile duct chiquita suring 3 mm. Reviewed, dictated and finalized at location A. LE BLOWER IMPRESSION: 1. Suboptimal visualization of the gallbladder which demonstrates mild dilation and mild wall thickening but no evident cholelithiasis and with negative Philip y sign to more specifically suggest acute cholecystitis. In addition to acute c holecystitis the differential for the wall thickening would include heart, live r renal failure, sepsis or other generalized edema forming states. If there is clinical concern for acute cholecystitis could consider HIDA scan for further e valuation. 2. No evident intra or extra hepatic biliary ductal dilation with normal calibe r common bile duct measuring 3 mm.
--- NOTE | 2020-12-01 09:26 | ECG_ITS ---
Measurements Intervals [place] Rate: 88 P: 158 NJ: 163 QRS: -24 QRSD: 96 T: 149 QT: 373 QTc: 452 Interpretive Statements SINUS RHYTHM LEFT ATRIAL ENLARGEMENT RSR' IN V1 OR V2, CONSIDER RIGHT VENTRICULAR HYPERTROPHY OR RIGHT VCD BORDERLINE ST-T WAVE ABNORMALITY- INF/HIGH LAT LEADS BASELINE ARTIFACT- I, II, III, AVR, AVL, AVF BORDERLINE ECG Electronically Signed On 12-01-2020 10:56:10 CALENDAR CONTROL CLERK BLOOD BANK by Quan Kerr D.O.
--- NOTE | 2020-12-01 09:30 | ED.GENADULT ---
HPI - General Adult General Chief complaint: Unspecified Stated complaint: low 02 sats History of Present Illness HPI narrative: History limited by aphasia 70 yo male w/ h/o CVA, aphasia, htn, hypothyroidism brought in by EMS from custodial for shortness of breath. He was reportedly dyspneic and hypoxic at the custodial earlier in the morning per EMS. On arrival here he has no complaints and is not hypoxic. He does agree that he had been earlier. He says that he does not know if he has any pain. Related Data Home Medications Medication Instructions Recorded Confirmed albuterol sulfate [Ventolin HFA] 2 puff INHALATION Q4-6H PRN 07/27/20 07/27/20 amlodipine 5 mg PO DAILY 07/27/20 07/27/20 aspirin 325 mg PO DAILY 07/27/20 07/27/20 atorvastatin 10 mg PO HS 07/27/20 07/27/20 buspirone 30 mg PO Q12H 07/27/20 07/27/20 clopidogrel 75 mg PO DAILY 07/27/20 07/27/20 cyanocobalamin (vitamin B-12) 100 mcg MONTHLY 07/27/20 07/27/20 ergocalciferol (vitamin D2) 1,250 mcg PO WEEKLY 07/27/20 07/27/20 [Vitamin D2] famotidine 20 mg PO DAILY 07/27/20 07/27/20 fluticasone propionate 2 spray INTRANASAL DAILY 07/27/20 07/27/20 levothyroxine 175 mcg PO DAILY 07/27/20 07/27/20 loratadine 10 mg PO DAILY 07/27/20 07/27/20 losartan 100 mg PO DAILY 07/27/20 07/27/20 metolazone 5 mg PO DAILY 07/27/20 07/27/20 metoprolol tartrate 25 mg PO BID 07/27/20 07/27/20 montelukast 10 mg PO QPM 07/27/20 07/27/20 sertraline 50 mg PO DAILY 07/27/20 07/27/20 spironolactone 50 mg PO DAILY 07/27/20 07/27/20 tamsulosin 0.4 mg PO HS 07/27/20 07/27/20 venlafaxine 75 mg PO DAILY 07/27/20 07/27/20 Allergies Allergy/AdvReac Type Severity Reaction Status Date / Time Penicillins Allergy Unknown HIVES Verified 07/29/20 10:55 strawberry Allergy Unknown ITCHY Verified 07/29/20 10:55 acetaminophen Allergy Unknown Verified 07/29/20 14:46 [From Darvocet-N 100] Latex, Natural Rubber Allergy Unknown Verified 07/29/20 10:55 propoxyphene Allergy Unknown Verified 07/29/20 10:55 [From Darvocet-N 100] Review of Systems Review of Systems: Narrative: Unobtainable due to aphasia [facility] Past Medical History Medical History Antithrombin III deficiency Benign prostatic hyperplasia Carotid artery disease Status post right carotid endarterectomy. CTA on showed 30% left carotid bulb stenosis and 20% left carotid siphon stenosis. 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 Chronic anemia Cognitive dysfunction Coronary artery disease With history of [place] status post PTCA/stent. 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 History of cardiac catheterization With history of PTCA/stent. History of hemorrhoidectomy History of loop recorder History of right-sided carotid endarterectomy (~10/11/16) Family History Family History Other Congestive heart failure Coronary artery disease Diabetes mellitus Social History Social History Social History: Surrogate decision maker: Staceyanalia Perez, friend. Code status: Full code. Smoking status: Former smoker Tobacco type: cigarettes Additional smoking assessment comments: Patient states he smoked one pack of cigarettes a week. Alcohol intake: former Substance use: never Additional living arrangements comments: Lives in assisted living at [facility]. twice, no children. Additional occupation/education comments: Retired. 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 Spiritual care c
[2020-12-01] MEDS: SODIUM CHLORIDE 0.9% IV 1,000 ML 999 ML IV CONT ×3 (09:47→13:29)
[2020-12-01 09:52] LABS: Basophils Percent Auto 0.2 % (0.2-1.2); Eosinophils Absolute Auto 0.1 K/mm3 (0-0.3); Eosinophils Percent Auto 0.3 % (0-4.4); Hematocrit 36.9 % (42.0-52.0); Hemoglobin 12.5 g/dL (14.0-18.0); Immature Granulocyte Absolute 1.58 K/mm3 (0.00-0.031); Immature Granulocyte Percent A 6.1 % (0-0.5); Lymphocytes Absolute Auto 0.38 K/mm3 (0.9-3.2); Lymphocytes Percent Auto 1.5 % (18.3-44.2); Mean Corpuscular HGB Conc 33.9 g/dl (32-36); Mean Corpuscular Hemoglobin 30.4 pg (26-34); Mean Corpuscular Volume 89.8 fl (80-100); Mean Platelet Volume 9.9 fl (7.4-10.4); Monocytes Absolute Auto 1.1 K/mm3 (0.1-0.6); Neutrophils Percent Auto 87.9 % (45.5-73.1); Nucleated Red Blood Cells Absolute Auto 0.1 K/mm3 (0.0-0.012); Nucleated Red Blood Cells Perc 0.3 % (0.0-0.2); Platelet Count Result 394 k/mm3 (150-375); Red Blood Count 4.11 M/mm3 (4.6-6.20); Red Cell Distribution Width 19.4 % (11.5-14.5); White Blood Count 26.1 K/mm3 (4.5-10.0)
[2020-12-01 10:10] LABS: INR 1.2; Partial Thromboplastin Time 28.4 SECONDS (22.3-36.8); Prothrombin Time 15.6 Seconds (11.1-14.7)
[2020-12-01 10:12] LABS: Lactic Acid Reflex 4.3 mmol/L (0.7-2.1)
[2020-12-01 10:14] LABS: Large Platelets Present; Ovalocytes 1+ (NORMAL); Platelet Estimate Increased (Adequate); Poikilocytosis 1+ (NORMAL)
[2020-12-01 10:15] LABS: Anisocytosis 1+ (NORMAL); Burr Cells 1+ (NORMAL)
--- NOTE | 2020-12-01 10:19 | PC.NURSE ---
lab arrived to draw blood cultures
--- NOTE | 2020-12-01 10:28 | PC.NURSE ---
body builder unable to obtain blood cultures - attempting to redraw blood work that was rejected per lab.
--- NOTE | 2020-12-01 11:26 | PC.NURSE ---
Unable to obtain blood cultures after attempt by 3 people. ERP aware.
[2020-12-01 11:30] LABS: Alanine Aminotransferase 76 U/L (4-50); Albumin Level 2.8 g/dL (3.5-5.1); Alkaline Phosphatase 67 U/L (38-126); Anion Gap 15 mmol/L (8-16); Aspartate Amino Transferase 100 U/L (17-59); Bilirubin,Total 0.8 mg/dL (0.2-1.3); Blood Urea Nitrogen 98 mg/dL (9-20); Calcium 7.5 mg/dL (8.4-10.2); Carbon Dioxide 11 mmol/L (22-30); Chloride 107 mmol/L (98-107); Estimated CRCL calculation 16 ml/min; Estimated Glomerular Filt Rate 12; Glucose 116 mg/dL (75-110); Potassium 4.8 mmol/L (3.4-5.0); Sodium 133 mmol/L (137-145)
[2020-12-01 11:33] LABS: Add Urine Microscopic? YES; Appearance Urine Turbid (Clear); Bacteria Urine 4+ /hpf; Bilirubin Urine Negative (Negative); Blood Urine 1+ (Negative); Color Urine Yellow (Yellow); Glucose Urine UA Negative (Negative); Ketones Urine Negative (Negative); Leukocyte Esterase Ur 1+ LEU/UL (Negative); Nitrate Urine Negative (Negative); Protein Urine 2+ mg/dL (Negative); RBC Urine >75 /hpf (0-2); Specific Grav Ur 1.019 (1.001-1.035); WBC Clumps Urine Present /HPF; WBC Urine >75 /hpf
[2020-12-01 11:36] LABS: NT Pro B Type Natriuretic Pept 2590 PG/ML (5-100); Troponin I 0.141 ng/mL (0.000-0.034)
[2020-12-01 12:50] LABS: Reflex Lactic Acid Yes or No Add Lactic
[2020-12-01] MEDS: ONDANSETRON INJ 4 MG/2 ML VIAL (12:55)
[2020-12-01] MEDS: metroNIDAZOLE 500 MG/ISO 100ML 500 MG/100 ML BAG 100 MG IVPB ×2 (12:55→21:11)
[2020-12-01] MEDS: NOREPINEPHRINE 8 MG/D5W 250 ML 8 MG/250 ML BAG 9.38 MG IV CONT (13:15)
[2020-12-01 15:42] LABS: Lactic Acid 1.9 mmol/L (0.7-2.1)
--- NOTE | 2020-12-01 16:17 | ADMGEN ---
This patient, Emile Scott, was admitted to Intensive Care Unit-6. Patient/family oriented to hospital policies and general routines including ID bracelet, bed and alarms, visiting hours, pain management, procedures, bathroom and other care routines, personal items, smoking policy, room service/diet, and visiting hours. Information on how to activate the Rapid Response Team has been discussed. Patient/Family are encouraged to report perceived risks to care and to ask questions if they do not understand what they are told or what they should do.
--- NOTE | 2020-12-01 17:10 | PM.IMHP ---
H&P: HPI History of Present Illness Date/Time: 12/01/20 16:50 Chief Complaint: ?Low oxygen saturation. Narrative: Emile Scott is a 70-year-old male with history of CVA x2 with residual right lower extremity weakness, carotid artery disease status post right carotid endarterectomy, coronary artery disease with history of PTCA/stent, hypertension, hyperlipidemia, and hypothyroidism who presented to the emergency department earlier today via EMS from [facility] with reports of ?low oxygen saturations. It is my understanding that his SpO2 was in the mid 70s and he was placed on oxygen however his sats have been in the high 90s on room air since that time. The patient endorses feeling short of breath earlier however he has no issues with such at this time. He was profoundly hypotensive on arrival to the emergency department and has since been started on Levophed as he did not have significant improvement with IV fluid hydration. He was also found to have an acute kidney injury as well as urinary tract infection, and is being admitted in this setting. At the time my evaluation he is moderately ill in appearance and is lethargic. He does interact but falls asleep easily. He denies fever, chills, sweats, headache, chest pain, current shortness of breath, cough, nausea, vomiting, and diarrhea. Review of Systems Review of Systems: Narrative: 12 systems were reviewed with pertinent positives and negatives as per HPI. Except as documented, all other systems were reviewed and are negative. [facility] Past Medical History Medical History (Updated 12/02/20 @ 03:00 by Maria D Alexandre PA-C) Antithrombin III deficiency Benign prostatic hyperplasia Carotid artery disease Status post right carotid endarterectomy. CTA on 07/27/2020 showed 30% left carotid bulb stenosis and 20% left carotid siphon stenosis. 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 Chronic anemia Cognitive dysfunction Coronary artery disease With history of [place] status post PTCA/stent. COVID-19 (~07/2020) Depression with anxiety Gastroesophageal reflux disease Hyperlipidemia Hypertension Hypothyroidism Occlusion of left vertebral artery Noted on imaging in 07/2020 with reconstitution. 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 History of cardiac catheterization With history of PTCA/stent. History of hemorrhoidectomy History of loop recorder History of right-sided carotid endarterectomy (~10/11/16) Family History Family History Other Congestive heart failure Coronary artery disease Diabetes mellitus Social History Social History (Updated 12/02/20 @ 03:00 by Maria D Alexandre PA-C) Social History: Surrogate decision maker: Stacey Perez, friend. Code status: Full code. Smoking status: Former smoker Tobacco type: cigarettes Additional smoking assessment comments: Patient states he smoked one pack of cigarettes a week. Alcohol intake: never Substance use: never Additional living arrangements comments: Previously lived in assisted living at [facility] although he is now at [facility] after his most recent stroke. twice, no children. Additional occupation/education comments: Retired. He used to work security and drove a med car as well. Gender identity (if verbalized by the patient): Male Sexual Orientation (if Verbalized by the Patient): Straight or Heterosexual Spiritual care concerns: No Meds Home Medications and Allergies Home Medications Medication Instructions Recorded Confirmed Type albuterol sulfate [Ventolin HFA] 2 puff INHALATION Q4-6H PRN 07/27/20 12/01/20 History aspirin 81 mg
[2020-12-01 18:22] LABS: Anion Gap 15 mmol/L (8-16); Blood Urea Nitrogen 95 mg/dL (9-20); Calcium 7.4 mg/dL (8.4-10.2); Carbon Dioxide 14 mmol/L (22-30); Chloride 104 mmol/L (98-107); Creatine Kinase 429 U/L (55-170); Estimated CRCL calculation 18 ml/min; Estimated Glomerular Filt Rate 13; Glucose 110 mg/dL (75-110); Magnesium 1.9 mg/dL (1.6-2.3); Potassium 4.4 mmol/L (3.4-5.0); Sodium 133 mmol/L (137-145)
[2020-12-01 18:47] LABS: Troponin I 0.114 ng/mL (0.000-0.034)
[2020-12-01 19:30] LABS: Free T4 Free Thyroxine 1.19 ng/mL (0.78-2.19)
[2020-12-01 19:35] LABS: Cortisol Random > 123.00 ug/dL
[2020-12-01 20:09] LABS: Alveolar/Arterial O2 Gradient 30.4 mmHg; Base Excess ABG -13.1 mEq/l (+/-2.0); Carboxyhemoglobin 0.3 % THb (0-2.0); Fractional Inspired Oxygen 21 %; HCO3 ABG 10.7 mEq/l (22.0-26.0); Methemoglobin ABG 0.1 %THb (0-1.5); Oxyhemoglobin 96.2 % THb (90.0-100.0); PO2 ABG 94.7 mmHg (80.0-100.0); PO2 FiO2 Ratio Arterial Blood 4.51 %; Reduced Hemoglobin 3.4 %THb (0-5.0); Total Hemoglobin 12.5 g/dL (12.0-18.0); pH ABG 7.333 (7.350-7.450)
[2020-12-01 20:11] LABS: PCO2 ABG 20.6 mmHg (35.0-45.0)
[2020-12-01 20:13] LABS: Device ROOM AIR; Modified Allen's Test Pass; Site Drawn RIGHT RADIAL
[2020-12-01 21:53] LABS: Troponin I 0.124 ng/mL (0.000-0.034)
[2020-12-01] MEDS: SODIUM CHLORIDE 0.9% IV 500 ML IV CONT (22:42)
[2020-12-01] MEDS: SODIUM BICARBONATE 8.4% 150 MEQ in DEXTROSE 5% 1,000 ML 1,000 ML 75 MEQ IV CONT (23:09)
[2020-12-02] VITALS (26 sets, daily range): BP systolic 82–118; BP diastolic 48–78; PULSE 92–109; RESP 14–23; TEMP 36.9–37.6; O2SAT 92–99
[2020-12-02] LABS: SARS-CoV-2 RNA PCR Negative
[2020-12-02 04:44] LABS: Hematocrit 29.8 % (42.0-52.0); Hemoglobin 10.1 g/dL (14.0-18.0); Mean Corpuscular HGB Conc 33.9 g/dl (32-36); Mean Corpuscular Hemoglobin 29.5 pg (26-34); Mean Corpuscular Volume 87.1 fl (80-100); Mean Platelet Volume 9.3 fl (7.4-10.4); Platelet Count Result 271 k/mm3 (150-375); Red Blood Count 3.42 M/mm3 (4.6-6.20); Red Cell Distribution Width 18.7 % (11.5-14.5); White Blood Count 19.8 K/mm3 (4.5-10.0)
[2020-12-02] MEDS: metroNIDAZOLE 500 MG/ISO 100ML 500 MG/100 ML BAG 100 MG IVPB ×3 (05:39→20:56)
[2020-12-02 06:35] LABS: Potassium 3.3 mmol/L (3.4-5.0)
[2020-12-02 06:53] LABS: Alanine Aminotransferase 129 U/L (4-50); Albumin Level 2.6 g/dL (3.5-5.1); Alkaline Phosphatase 66 U/L (38-126); Anion Gap 14 mmol/L (8-16); Aspartate Amino Transferase 133 U/L (17-59); Bilirubin,Total 0.6 mg/dL (0.2-1.3); Blood Urea Nitrogen 91 mg/dL (9-20); Calcium 6.7 mg/dL (8.4-10.2); Carbon Dioxide 14 mmol/L (22-30); Chloride 106 mmol/L (98-107); Creatine Kinase 391 U/L (55-170); Estimated CRCL calculation 20 ml/min; Estimated Glomerular Filt Rate 18; Glucose 110 mg/dL (75-110); Magnesium 1.8 mg/dL (1.6-2.3); Phosphorus 5.9 mg/dL (2.5-4.5); Sodium 134 mmol/L (137-145)
[2020-12-02] MEDS: KCL 20 MEQ/SW 100 ML 100 ML 50 MEQ IVPB (08:04)
--- NOTE | 2020-12-02 08:33 | WPDCNINT ---
Assessment and Plan Assessment and plan (1) Septic shock: Code(s): A41.9 - Sepsis, unspecified organism; R65.21 - Severe sepsis with septic shock Status: Acute Assessment and Plan: Patient presented with shortness of breath, hypotension, acute kidney injury, lactic acidosis, elevated liver enzymes -source likely urine infection and or bacteremia -patient has been adequately fluid-resuscitated, maintenance IV fluids. -continue Levophed, maintain mean arterial pressures greater than 65 mmHg - azithromycin Flagyl and ceftriaxone -blood cultures and urine cultures pending (2) Acute kidney injury: Code(s): N17.9 - Acute kidney failure, unspecified Status: Acute Assessment and Plan: Acute kidney injury likely related to septic shock, hypotension, hypovolemia, diuretic use as patient is on maintenance on and spironolactone at home. Patient also has been on ibuprofen -adequately fluid-resuscitated, improving urine output, creatinine trending down. -metabolic acidosis on bicarb infusion -renal ultrasound has been ordered, will also check urine lytes -continue to monitor renal function, electrolytes and urine -low potassium, replaced (3) Urinary tract infection: Code(s): N39.0 - Urinary tract infection, site not specified Status: Acute Assessment and Plan: UA reflective of UTI, await culture results, continue antibiotics as above (4) Elevated LFTs: Code(s): R79.89 - Other specified abnormal findings of blood chemistry Status: Acute Assessment and Plan: Will obtain right upper quadrant ultrasound and hepatitis panel -possible gallbladder disease (5) DVT prophylaxis: Code(s): Z29.9 - Encounter for prophylactic measures, unspecified Status: Acute Assessment and Plan: SCDs Additional Plan Discussed with patient and updated him with his condition and plan of care. Code status: Full code Critical care time spent: 46 minutes Due to a high probability of clinically significant, life threatening deterioration, the patient required my highest level of preparedness to intervene emergently and I personally spent this critical care time directly and personally managing the patient. This critical care time included obtaining a history; examining the patient; pulse oximetry; ordering and review of studies; arranging urgent treatment with development of a management plan; evaluation of patient's response to treatment; frequent reassessment; and discussions with other providers. It was exclusive of separately billable procedures and treating other patients and teaching time. 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 The records his O2 sats were in the mid 70s any was placed oxygen with improvement in his O2 sats in the 90s. He was found to be hypotensive and was given adequate IV fluids, despite the IV fluids pt remained hypotensive, Central line wa splaced and started on levophed. Pt was transferred to ICU for further management. Pt seen and examined in the ICU this morning. Is awake, alert and follows commands. States he has had a stroke and cannot move is Left lower extremity. Pt remains on Levophed at 5 mcg/min. UO adequate, Pt remains on room air with good O2 sats. UA reflective of UTI, on ABX. Leukocytosis trending down. Pt denies any SOB, chest pain, abdomen pain, nausea or vomiting
[2020-12-02 09:52] LABS: Creatinine Urine 53.7 mg/dL
[2020-12-02] MEDS: FINASTERIDE 5 MG TABLET PO (09:53)
[2020-12-02] MEDS: VENLAFAXINE HCL XR 75 MG CAP.ER.24H PO (09:53)
[2020-12-02] MEDS: predniSONE 10 MG TABLET PO (09:53)
[2020-12-02] MEDS: FAMOTIDINE 20 MG TABLET PO (09:53)
[2020-12-02] MEDS: CLOPIDOGREL BISULFATE 75 MG TABLET PO (09:53)
[2020-12-02] MEDS: ASPIRIN 81 MG ENTERIC TABLET PO (09:53)
[2020-12-02] MEDS: LEVOTHYROXINE SODIUM 125 MCG TABLET PO (09:54)
[2020-12-02 10:00] LABS: Potassium Urine Random 26.6 meq/L; Sodium Urine Random 73 meq/L
[2020-12-02 10:41] LABS: CRP 34.3 mg/dL (<1.0)
[2020-12-02 12:00] LABS: Hepatitis B Surface Antigen Negative (Negative)
[2020-12-02 12:11] LABS: HAV RESULT Negative (Negative); Hepatitis B Core IgM Result Negative (Negative)
[2020-12-02] MEDS: NOREPINEPHRINE 8 MG/D5W 250 ML 8 MG/250 ML BAG 7.5 MG IV CONT (12:16)
[2020-12-02 12:25] LABS: Hepatitis C Virus Antibody Negative (Negative)
[2020-12-02] MEDS: SODIUM CHLORIDE 0.9% IV 500 ML IV CONT (14:13)
[2020-12-02] MEDS: SODIUM BICARBONATE 8.4% 150 MEQ in DEXTROSE 5% 1,000 ML 1,000 ML 75 MEQ IV CONT (14:50)
[2020-12-02] MEDS: SERTRALINE HCL 50 MG TABLET 100 MG PO (20:41)
[2020-12-02] MEDS: ATORVASTATIN 10 MG TABLET PO (20:41)
[2020-12-03] VITALS (14 sets, daily range): BP systolic 91–117; BP diastolic 65–81; PULSE 89–121; RESP 15–24; TEMP 35.6–37.1; O2SAT 18–98
[2020-12-03] MEDS: SODIUM BICARBONATE 8.4% 150 MEQ in DEXTROSE 5% 1,000 ML 1,000 ML 75 MEQ IV CONT (04:19)
[2020-12-03 05:14] LABS: Basophils Absolute Auto 0.1 K/mm3 (0.0-0.1); Basophils Percent Auto 0.4 % (0.2-1.2); Hematocrit 29.8 % (42.0-52.0); Hemoglobin 10.1 g/dL (14.0-18.0); Immature Granulocyte Absolute 0.96 K/mm3 (0.00-0.031); Immature Granulocyte Percent A 4.3 % (0-0.5); Lymphocytes Absolute Auto 0.34 K/mm3 (0.9-3.2); Lymphocytes Percent Auto 1.5 % (18.3-44.2); Mean Corpuscular HGB Conc 33.9 g/dl (32-36); Mean Corpuscular Hemoglobin 29.3 pg (26-34); Mean Corpuscular Volume 86.4 fl (80-100); Mean Platelet Volume 9.7 fl (7.4-10.4); Monocytes Absolute Auto 0.9 K/mm3 (0.1-0.6); Neutrophils Absolute Auto 19.9 K/mm3 (1.3-6.7); Neutrophils Percent Auto 89.8 % (45.5-73.1); Nucleated Red Blood Cells Absolute Auto 0.1 K/mm3 (0.0-0.012); Nucleated Red Blood Cells Perc 0.5 % (0.0-0.2); Platelet Count Result 226 k/mm3 (150-375); Red Blood Count 3.45 M/mm3 (4.6-6.20); Red Cell Distribution Width 18.5 % (11.5-14.5); White Blood Count 22.2 K/mm3 (4.5-10.0)
[2020-12-03 05:31] LABS: Lactic Acid Reflex 1.2 mmol/L (0.7-2.1)
[2020-12-03] MEDS: metroNIDAZOLE 500 MG/ISO 100ML 500 MG/100 ML BAG 100 MG IVPB (05:44)
[2020-12-03 05:51] LABS: Alanine Aminotransferase 96 U/L (4-50); Albumin Level 2.6 g/dL (3.5-5.1); Alkaline Phosphatase 77 U/L (38-126); Anion Gap 6 mmol/L (8-16); Aspartate Amino Transferase 75 U/L (17-59); Bilirubin,Total 0.4 mg/dL (0.2-1.3); Blood Urea Nitrogen 55 mg/dL (9-20); Calcium 7.1 mg/dL (8.4-10.2); Carbon Dioxide 28 mmol/L (22-30); Chloride 101 mmol/L (98-107); Estimated CRCL calculation 48 ml/min; Estimated Glomerular Filt Rate 50; Glucose 124 mg/dL (75-110); Lipase 70 U/L (23-300); Magnesium 1.6 mg/dL (1.6-2.3); Potassium 2.6 mmol/L (3.4-5.0); Sodium 135 mmol/L (137-145)
[2020-12-03] MEDS: POTASSIUM CHLORIDE 20 MEQ PACKET (FOR LIQUID) 40 MEQ PO (06:25)
[2020-12-03 06:30] LABS: Polychromasia 1+ (NORMAL)
[2020-12-03 06:31] LABS: Ovalocytes 2+ (NORMAL); Platelet Estimate Adequate (Adequate)
[2020-12-03] MEDS: ASPIRIN 81 MG ENTERIC TABLET PO (08:10)
[2020-12-03] MEDS: FAMOTIDINE 20 MG TABLET PO (08:10)
[2020-12-03] MEDS: LEVOTHYROXINE SODIUM 125 MCG TABLET PO (08:11)
[2020-12-03] MEDS: VENLAFAXINE HCL XR 75 MG CAP.ER.24H PO (08:11)
[2020-12-03] MEDS: FINASTERIDE 5 MG TABLET PO (08:11)
[2020-12-03] MEDS: CLOPIDOGREL BISULFATE 75 MG TABLET PO (08:11)
[2020-12-03] MEDS: predniSONE 10 MG TABLET PO (08:11)
--- NOTE | 2020-12-03 11:10 | WPDINTPN ---
Progress Note: A&P Assessment and Plan (1) Septic shock: Code(s): A41.9 - Sepsis, unspecified organism; R65.21 - Severe sepsis with septic shock Status: Acute Assessment and Plan: Patient presented with shortness of breath, hypotension, acute kidney injury, lactic acidosis, elevated liver enzymes -Klebsiella UTI -lactic acid 1.2 -OFF LEVOPHED -will discontinue azithromycin and Flagyl. -continue ceftriaxone (2) Acute kidney injury: Code(s): N17.9 - Acute kidney failure, unspecified Status: Acute Assessment and Plan: RESOLVING Acute kidney injury likely related to septic shock, hypotension, hypovolemia, diuretic use as patient is on maintenance on and spironolactone at home. Patient also has been on ibuprofen -adequately fluid-resuscitated, improving urine output, creatinine trending down. -DISCONTINUE BICARB INFUSION -renal ultrasound 12/02/2020: Suboptimal exam with no hydronephrosis suspect -continue to monitor renal function, electrolytes and urine -low potassium, replaced (3) Urinary tract infection: Code(s): N39.0 - Urinary tract infection, site not specified Status: Acute Assessment and Plan: Klebsiella on urine cultures, continue ceftriaxone (4) Elevated LFTs: Code(s): R79.89 - Other specified abnormal findings of blood chemistry Status: Acute Assessment and Plan: Right upper quadrant ultrasound demonstrated did mild dilatation and mild wall thickening but no evidence of cholelithiasis or acute cholecystitis. No evident intra extrahepatic biliary ductal dilatation with normal caliber common bile duct. - LFTs trending down could be related to septic shock -continue to monitor LFTs (5) DVT prophylaxis: Code(s): Z29.9 - Encounter for prophylactic measures, unspecified Status: Acute Assessment and Plan: SCDs Additional Plan Discussed with patient and updated him with his condition and plan of care. Code status: Full code Critical care time spent: 32 minutes Due to a high probability of clinically significant, life threatening deterioration, the patient required my highest level of preparedness to intervene emergently and I personally spent this critical care time directly and personally managing the patient. This critical care time included obtaining a history; examining the patient; pulse oximetry; ordering and review of studies; arranging urgent treatment with development of a management plan; evaluation of patient's response to treatment; frequent reassessment; and discussions with other providers. It was exclusive of separately billable procedures and treating other patients and teaching time. Please see Assessment and Plan section and the rest of the note for further information on patient assessment and treatment Subjective Date/time seen: 12/03/20 11:10 Interval history: Reason for consult: Septic shock, UTI, possible bacteremia 12/03/2020: Patient off Levophed since last night. Output been adequate, creatinine is down to 1.4. Patient's bicarb infusion. Patient is awake, answers to questions appropriately and follows simple commands with all extremities except for right lower extremity which is week secondary to previous strokes. Patient remains on room air with good O2 sats. Urine cultures growing Klebsiella. Patient denies any shortness of abdominal pain,, vomiting, any other complaints. No issues overnight according the the night nurse. Review of Systems Review of Systems: All systems reviewed & are unremarkable except as noted in HPI and below Exam Const: General: comfortable and no acute distress HENMT: Mouth: Yes moist mucous membranes Eyes: Sclera: sclerae normal Pupils: Equal, round and reactive pupils present Neck: Neck: supple Resp: Effort & Inspection: normal respiratory effort Auscultation: clear to auscultation bilaterally and diminished lung sounds (at bases) Cardio: Rate: regula
[2020-12-03] MEDS: SERTRALINE HCL 50 MG TABLET 100 MG PO (20:57)
[2020-12-03] MEDS: ATORVASTATIN 10 MG TABLET PO (20:57)
[2020-12-04] VITALS (11 sets, daily range): BP systolic 98–117; BP diastolic 60–81; PULSE 64–113; RESP 16–22; TEMP 35.8–36.7; O2SAT 91–98
[2020-12-04 05:05] LABS: Basophils Absolute Auto 0.1 K/mm3 (0.0-0.1); Basophils Percent Auto 0.3 % (0.2-1.2); Hematocrit 29.8 % (42.0-52.0); Hemoglobin 10.1 g/dL (14.0-18.0); Immature Granulocyte Absolute 0.92 K/mm3 (0.00-0.031); Immature Granulocyte Percent A 3.2 % (0-0.5); Lymphocytes Absolute Auto 0.39 K/mm3 (0.9-3.2); Lymphocytes Percent Auto 1.4 % (18.3-44.2); Mean Corpuscular HGB Conc 33.9 g/dl (32-36); Mean Corpuscular Hemoglobin 30.1 pg (26-34); Mean Corpuscular Volume 88.7 fl (80-100); Mean Platelet Volume 9.9 fl (7.4-10.4); Monocytes Absolute Auto 1.2 K/mm3 (0.1-0.6); Neutrophils Absolute Auto 25.9 K/mm3 (1.3-6.7); Neutrophils Percent Auto 91.1 % (45.5-73.1); Nucleated Red Blood Cells Absolute Auto 0.1 K/mm3 (0.0-0.012); Nucleated Red Blood Cells Perc 0.2 % (0.0-0.2); Platelet Count Result 220 k/mm3 (150-375); Red Blood Count 3.36 M/mm3 (4.6-6.20); Red Cell Distribution Width 18.7 % (11.5-14.5); White Blood Count 28.4 K/mm3 (4.5-10.0)
[2020-12-04 05:26] LABS: Alanine Aminotransferase 76 U/L (4-50); Albumin Level 2.5 g/dL (3.5-5.1); Alkaline Phosphatase 87 U/L (38-126); Anion Gap 4 mmol/L (8-16); Aspartate Amino Transferase 52 U/L (17-59); Bilirubin,Total 0.4 mg/dL (0.2-1.3); Blood Urea Nitrogen 44 mg/dL (9-20); Calcium 7.9 mg/dL (8.4-10.2); Carbon Dioxide 30 mmol/L (22-30); Chloride 102 mmol/L (98-107); Estimated CRCL calculation 55 ml/min; Estimated Glomerular Filt Rate 60; Glucose 104 mg/dL (75-110); Magnesium 1.7 mg/dL (1.6-2.3); Potassium 3.3 mmol/L (3.4-5.0); Sodium 136 mmol/L (137-145)
--- NOTE | 2020-12-04 06:07 | WPDCDIQUERY2 ---
CDI Query Clarification Request - He is not having any chest pain though we will continue to trend troponins to peak. Most likely this is a type 2 infarct and demand ischemia stemming from septic shock has been documented in the H&P. -Troponins: 0.141, 0.114, 0.124 Please clarify if type 2 infarct has been ruled in or ruled out. Please clarify if demand ischemia has been ruled in or ruled out.
[2020-12-04] MEDS: LEVOTHYROXINE SODIUM 125 MCG TABLET PO (06:42)
[2020-12-04] MEDS: POTASSIUM CHLORIDE 20 MEQ TABLET 40 MEQ PO (06:44)
[2020-12-04] MEDS: ASPIRIN 81 MG ENTERIC TABLET PO (08:10)
[2020-12-04] MEDS: CLOPIDOGREL BISULFATE 75 MG TABLET PO (08:11)
[2020-12-04] MEDS: FINASTERIDE 5 MG TABLET PO (08:11)
[2020-12-04] MEDS: FAMOTIDINE 20 MG TABLET PO (08:11)
[2020-12-04] MEDS: VENLAFAXINE HCL XR 75 MG CAP.ER.24H PO (08:11)
[2020-12-04] MEDS: predniSONE 10 MG TABLET PO (08:11)
--- NOTE | 2020-12-04 08:40 | PC.NURSE ---
This patient, Emile Scott, was transferred to [[id number]] on 12/04/20 at 0840. Personal belongings sent with patient. Report given to [evita mercado]. Appropriate documentation sent with patient.
--- NOTE | 2020-12-04 09:14 | PC.NURSE ---
This patient, Emile Scott, was received from ICU 6 on 12/04/20 at 0846. Received report from DONAL Smith. Patient/family oriented to unit policies and routines
[2020-12-04 11:44] LABS: Potassium 3.4 mmol/L (3.4-5.0)
--- NOTE | 2020-12-04 16:21 | PM.IMPN ---
Progress Note: A&P Assessment and Plan (1) Septic shock: Code(s): A41.9 - Sepsis, unspecified organism; R65.21 - Severe sepsis with septic shock Status: Resolved (2) Acute kidney injury: Code(s): N17.9 - Acute kidney failure, unspecified Status: Acute Assessment and Plan: continue to monitor BMP (3) Urinary tract infection: Code(s): N39.0 - Urinary tract infection, site not specified Status: Acute Assessment and Plan: Pt is on iv rocephin (4) Elevated LFTs: Code(s): R79.89 - Other specified abnormal findings of blood chemistry Status: Acute Assessment and Plan: continue to monitor (5) Elevated troponin: Code(s): R77.8 - Other specified abnormalities of plasma proteins Status: Acute Assessment and Plan: continue to monitor (6) Abnormal chest x-ray: Code(s): R93.89 - Abnormal findings on diagnostic imaging of other specified body structures Status: Acute Assessment and Plan: CXR NAD (7) Chronic anemia: Code(s): D64.9 - Anemia, unspecified Status: Acute Assessment and Plan: continue to monitor (8) Benign prostatic hyperplasia: Code(s): N40.0 - Benign prostatic hyperplasia without lower urinary tract symptoms Status: Chronic (9) Hypertension: Code(s): I10 - Essential (primary) hypertension Status: Chronic (10) Hypothyroidism: Code(s): E03.9 - Hypothyroidism, unspecified Status: Chronic Subjective Date/time seen: 12/04/20 16:21 Interval history: Septic shock, UTI, possible bacteremia was in icu initially transferred out to the medical floor having some diarrhea. cdiff collected for watery stool. Pt is otherwise doing ok. Bp is better. Review of Systems Review of Systems: All systems reviewed & are unremarkable except as noted in HPI and below Exam Const: General: cooperative and healthy appearing; No in distress Nutritional Appearance: overweight Orientation/consciousness: oriented to person HENMT: Head: normal to inspection Resp: Effort & Inspection: no respiratory distress Auscultation: no rhonchi and no wheezes Cardio: Rate: regular rate Rhythm: regular rhythm GI: Inspection: normal to inspection GI Palp: No abdominal tenderness, No Guarding due to palpation present (GI) and No Hepatomegaly present Auscultation: normal bowel sounds Neuro: General: oriented to person Objective Data Vital Signs Vital Signs: Vital Signs - 24 hr 12/03/20 18:00 12/03/20 20:00 12/03/20 22:00 Temperature 36.1 C L Pulse Rate 108 H 108 H 97 Respiratory Rate 18 Blood Pressure 114/75 Pulse Oximetry 98 12/04/20 00:00 12/04/20 02:00 12/04/20 04:00 Temperature 36.4 C L Pulse Rate 107 H 96 92 Respiratory Rate 16 Blood Pressure 98/74 L Pulse Oximetry 98 12/04/20 06:00 12/04/20 08:00 12/04/20 10:22 Temperature 35.8 C L Pulse Rate 99 104 H 112 H Respiratory Rate 22 H Blood Pressure 114/81 Pulse Oximetry 97 12/04/20 12:00 12/04/20 14:46 Temperature 36.7 C Pulse Rate 103 H 87 Respiratory Rate 16 Blood Pressure 117/78 Pulse Oximetry 94 Intake/Output Intake/Output: Intake & Output 12/01/20 12/02/20 12/03/20 12/04/20 23:59 23:59 23:59 23:59 Intake Total 3500 3630 2295 630 Output Total 2250 1825 425 Balance 3500 1380 470 205 Meds/Results Medications: Active Medications Generic Name Dose Route Start Last Admin Trade Name Lonnie PRN Reason Stop Dose Admin Aspirin 81 mg 12/02/20 09:00 12/04/20 08:10 Aspirin 81 Mg Enteric Tablet PO 81 mg DAILY BENNY Administration Atorvastatin Calcium 10 mg 12/02/20 21:00 12/03/20 20:57 Atorvastatin 10 Mg Tablet PO 10 mg HS BENNY Administration Clopidogrel Bisulfate 75 mg 12/02/20 09:00 12/04/20 08:11 Clopidogrel Bisulfate 75 Mg Tablet PO 75 mg DAILY BENNY Administration Famotidine 20 mg 12/02/20 09:00 12/04/20 08:1
[2020-12-04] MEDS: ATORVASTATIN 10 MG TABLET PO (20:57)
[2020-12-04] MEDS: SERTRALINE HCL 50 MG TABLET 100 MG PO (20:57)
[2020-12-05] VITALS (8 sets, daily range): BP systolic 110–117; BP diastolic 61–83; PULSE 85–105; RESP 17–18; TEMP 36.1–36.6; O2SAT 92–97
[2020-12-05 05:07] LABS: Hematocrit 29.1 % (42.0-52.0); Hemoglobin 9.6 g/dL (14.0-18.0); Mean Corpuscular Hemoglobin 30.1 pg (26-34); Mean Corpuscular Volume 91.2 fl (80-100); Mean Platelet Volume 9.9 fl (7.4-10.4); Platelet Count Result 226 k/mm3 (150-375); Red Blood Count 3.19 M/mm3 (4.6-6.20); Red Cell Distribution Width 18.6 % (11.5-14.5); White Blood Count 33.1 K/mm3 (4.5-10.0)
[2020-12-05 05:23] LABS: Anion Gap 4 mmol/L (8-16); Blood Urea Nitrogen 40 mg/dL (9-20); Calcium 8.2 mg/dL (8.4-10.2); Carbon Dioxide 31 mmol/L (22-30); Chloride 102 mmol/L (98-107); Estimated CRCL calculation 51 ml/min; Estimated Glomerular Filt Rate 54; Glucose 103 mg/dL (75-110); Potassium 2.9 mmol/L (3.4-5.0); Sodium 137 mmol/L (137-145)
[2020-12-05] MEDS: LEVOTHYROXINE SODIUM 125 MCG TABLET PO (06:20)
[2020-12-05] MEDS: VENLAFAXINE HCL XR 75 MG CAP.ER.24H PO (09:40)
[2020-12-05] MEDS: predniSONE 10 MG TABLET PO (09:40)
[2020-12-05] MEDS: ASPIRIN 81 MG ENTERIC TABLET PO (09:40)
[2020-12-05] MEDS: FINASTERIDE 5 MG TABLET PO (09:40)
[2020-12-05] MEDS: CLOPIDOGREL BISULFATE 75 MG TABLET PO (09:40)
[2020-12-05] MEDS: FAMOTIDINE 20 MG TABLET PO (09:40)
--- NOTE | 2020-12-05 12:27 | PM.IMPN ---
Progress Note: A&P Assessment and Plan (1) Septic shock: Code(s): A41.9 - Sepsis, unspecified organism; R65.21 - Severe sepsis with septic shock Status: Resolved Assessment and Plan: Pt is off vasopressors, BC and UC ordered (2) Acute kidney injury: Code(s): N17.9 - Acute kidney failure, unspecified Status: Acute Assessment and Plan: Continue to monitor BMP (3) Urinary tract infection: Code(s): N39.0 - Urinary tract infection, site not specified Status: Acute Assessment and Plan: Pt is on iv Rocephin UC positive continue to monitor wcc. (4) Elevated LFTs: Code(s): R79.89 - Other specified abnormal findings of blood chemistry Status: Acute Assessment and Plan: Continue to monitor (5) Elevated troponin: Code(s): R77.8 - Other specified abnormalities of plasma proteins Status: Acute Assessment and Plan: Continue to monitor, mild elevation may be sepsis related (6) Abnormal chest x-ray: Code(s): R93.89 - Abnormal findings on diagnostic imaging of other specified body structures Status: Acute Assessment and Plan: CXR NAD (7) Chronic anemia: Code(s): D64.9 - Anemia, unspecified Status: Acute Assessment and Plan: continue to monitor (8) Benign prostatic hyperplasia: Code(s): N40.0 - Benign prostatic hyperplasia without lower urinary tract symptoms Status: Chronic Assessment and Plan: pt is on finasteride (9) Hypertension: Code(s): I10 - Essential (primary) hypertension Status: Chronic Assessment and Plan: pt is on metoprololol (10) Hypothyroidism: Code(s): E03.9 - Hypothyroidism, unspecified Status: Chronic Assessment and Plan: pt is on levothryoxine Subjective Date/time seen: 12/05/20 12:27 Interval history: Septic shock, UTI, possible bacteremia was in icu initially transferred out to the medical floor having some diarrhea. cdiff collected for watery stool. Pt is otherwise doing ok. complains of left lower abdominal pain. no fevers today. ongoing loose diarrhea. wcc remains high Review of Systems Review of Systems: All systems reviewed & are unremarkable except as noted in HPI and below Exam Const: General: cooperative and ill appearing Orientation/consciousness: oriented to person HENMT: Head: normal to inspection Resp: Effort & Inspection: no respiratory distress Auscultation: no rhonchi and no wheezes Cardio: Rate: regular rate Rhythm: regular rhythm GI: Inspection: normal to inspection and other (left lower quadrant ttp ) Auscultation: normal bowel sounds Neuro: General: oriented to person Objective Data Vital Signs Vital Signs: Vital Signs - 24 hr 12/04/20 14:46 12/04/20 16:00 12/04/20 20:00 Temperature 36.7 C Pulse Rate 87 104 H 113 H Respiratory Rate 16 Blood Pressure 117/78 Pulse Oximetry 94 12/04/20 21:34 12/05/20 00:00 12/05/20 04:00 Temperature 36.3 C L 36.1 C L Pulse Rate 64 105 H 96 Respiratory Rate 22 H 18 Blood Pressure 104/60 110/61 Pulse Oximetry 91 92 12/05/20 04:40 12/05/20 08:00 Temperature 36.1 C L 36.1 C L Pulse Rate 99 100 Respiratory Rate 18 18 Blood Pressure 115/67 112/83 Pulse Oximetry 96 94 Intake/Output Intake/Output: Intake & Output 12/02/20 12/03/20 12/04/20 12/05/20 23:59 23:59 23:59 23:59 Intake Total 3630 2295 1840 830 Output Total 2250 1825 750 400 Balance 6277 037 9118 430 Meds/Results Medications: Active Medications Generic Name Dose Route Start Last Admin Trade Name Freq PRN Reason Stop Dose Admin Aspirin 81 mg 12/02/20 09:00 12/05/20 09:40 Aspirin 81 Mg Enteric Tablet PO 81 mg DAILY BENNY Administration Atorvastatin Calcium 10 mg 12/02/20 21:00 12/04/20 20:57 Atorvastatin 10 Mg Tablet PO 10 mg HS BENNY Administration Clopidogrel Bisulfate 75 mg 12/02/20 09:00 12/05/20 09:4
[2020-12-05] MEDS: POTASSIUM CHLORIDE 20 MEQ PACKET (FOR LIQUID) 40 MEQ PO (17:07)
[2020-12-05 19:43] LABS: SARS-CoV-2 RNA PCR Negative
[2020-12-05] MEDS: SERTRALINE HCL 50 MG TABLET 100 MG PO (20:09)
[2020-12-05] MEDS: ATORVASTATIN 10 MG TABLET PO (20:09)
[2020-12-06] VITALS (8 sets, daily range): BP systolic 106–111; BP diastolic 55–65; PULSE 71–120; RESP 16–20; TEMP 36.3–37.2; O2SAT 95–98
[2020-12-06] MEDS: LEVOTHYROXINE SODIUM 125 MCG TABLET PO (05:41)
[2020-12-06 05:57] LABS: Hematocrit 26.8 % (42.0-52.0); Hemoglobin 8.8 g/dL (14.0-18.0); Mean Corpuscular HGB Conc 32.8 g/dl (32-36); Mean Corpuscular Hemoglobin 29.8 pg (26-34); Mean Corpuscular Volume 90.8 fl (80-100); Mean Platelet Volume 10.1 fl (7.4-10.4); Platelet Count Result 233 k/mm3 (150-375); Red Blood Count 2.95 M/mm3 (4.6-6.20); Red Cell Distribution Width 18.1 % (11.5-14.5); White Blood Count 25.6 K/mm3 (4.5-10.0)
[2020-12-06 06:10] LABS: Anion Gap 4 mmol/L (8-16); Blood Urea Nitrogen 32 mg/dL (9-20); Calcium 8.2 mg/dL (8.4-10.2); Carbon Dioxide 32 mmol/L (22-30); Chloride 97 mmol/L (98-107); Estimated CRCL calculation 60 ml/min; Estimated Glomerular Filt Rate > 60; Glucose 92 mg/dL (75-110); Sodium 133 mmol/L (137-145)
[2020-12-06] MEDS: FINASTERIDE 5 MG TABLET PO (08:40)
[2020-12-06] MEDS: CLOPIDOGREL BISULFATE 75 MG TABLET PO (08:40)
[2020-12-06] MEDS: predniSONE 10 MG TABLET PO (08:40)
[2020-12-06] MEDS: VENLAFAXINE HCL XR 75 MG CAP.ER.24H PO (08:40)
[2020-12-06] MEDS: POTASSIUM CHLORIDE 20 MEQ PACKET (FOR LIQUID) 40 MEQ PO ×2 (08:40→17:45)
[2020-12-06] MEDS: FAMOTIDINE 20 MG TABLET PO (08:40)
[2020-12-06] MEDS: ASPIRIN 81 MG ENTERIC TABLET PO (08:40)
--- NOTE | 2020-12-06 11:22 | PM.IMPN ---
Progress Note: A&P Assessment and Plan (1) Septic shock: Code(s): A41.9 - Sepsis, unspecified organism; R65.21 - Severe sepsis with septic shock Status: Resolved Assessment and Plan: Bp is better treated for UTI with IV rocephin (2) Acute kidney injury: Code(s): N17.9 - Acute kidney failure, unspecified Status: Resolved Assessment and Plan: Continue to monitor BMP, creat is 1.1 (3) Urinary tract infection: Code(s): N39.0 - Urinary tract infection, site not specified Status: Acute Assessment and Plan: Pt is on iv Rocephin UC positive continue to monitor wcc. Wc is improving. (4) Elevated LFTs: Code(s): R79.89 - Other specified abnormal findings of blood chemistry Status: Acute Assessment and Plan: Continue to monitor (5) Elevated troponin: Code(s): R77.8 - Other specified abnormalities of plasma proteins Status: Acute Assessment and Plan: Continue to monitor, mild elevation may be sepsis related (6) Abnormal chest x-ray: Code(s): R93.89 - Abnormal findings on diagnostic imaging of other specified body structures Status: Acute Assessment and Plan: CXR NAD (7) Chronic anemia: Code(s): D64.9 - Anemia, unspecified Status: Acute Assessment and Plan: continue to monitor hb is 8 (8) Benign prostatic hyperplasia: Code(s): N40.0 - Benign prostatic hyperplasia without lower urinary tract symptoms Status: Chronic Assessment and Plan: pt is on finasteride (9) Hypertension: Code(s): I10 - Essential (primary) hypertension Status: Chronic Assessment and Plan: pt is on metoprololol (10) Hypothyroidism: Code(s): E03.9 - Hypothyroidism, unspecified Status: Chronic Assessment and Plan: pt is on levothryoxine (11) Diarrhea: Code(s): R19.7 - Diarrhea, unspecified Status: Acute Assessment and Plan: Improving on probiotics cdiff assay is pending Subjective Date/time seen: 12/06/20 11:22 Interval history: Septic shock, UTI, possible bacteremia was in icu initially transferred out to the medical floor having some diarrhea. cdiff collected for watery stool. Pt looks tired complains of left lower abdominal pain. no fevers today. diarrhea settled today, cdif pending. cultures show UTI. Wcc is high but is improving. Review of Systems Review of Systems: All systems reviewed & are unremarkable except as noted in HPI and below Exam Const: General: cooperative and ill appearing Nutritional Appearance: overweight Orientation/consciousness: oriented to person HENMT: Head: normal to inspection Resp: Effort & Inspection: no respiratory distress Auscultation: no rhonchi and no wheezes Cardio: Rate: regular rate Rhythm: regular rhythm GI: Inspection: normal to inspection and other (left lower quadrant ttp ) Auscultation: normal bowel sounds Neuro: General: oriented to person Objective Data Vital Signs Vital Signs: Vital Signs - 24 hr 12/05/20 12:00 12/05/20 16:00 12/05/20 20:00 Temperature 36.6 C Pulse Rate 104 H 91 97 Respiratory Rate 17 Blood Pressure 117/73 Pulse Oximetry 96 12/05/20 22:00 12/06/20 00:00 12/06/20 04:00 Temperature 36.6 C Pulse Rate 95 93 92 Respiratory Rate 18 Blood Pressure 115/69 Pulse Oximetry 97 12/06/20 06:00 12/06/20 08:00 Temperature 36.3 C L Pulse Rate 97 106 H Respiratory Rate 20 Blood Pressure 106/65 Pulse Oximetry 98 Intake/Output Intake/Output: Intake & Output 12/03/20 12/04/20 12/05/20 12/06/20 23:59 23:59 23:59 23:59 Intake Total 2295 1840 2440 840 Output Total 1825 750 950 600 Balance 470 1090 1490 240 Meds/Results Medications: Active Medications Generic Name Dose Route Start Last Admin Trade Name Freq PRN Reason Stop Dose Admin Aspirin 81 mg 12/02/20 09:00 12/06/20 08:40 Aspirin 81 Mg Enteric Ta
[2020-12-06] MEDS: SACCHAROMYCES BOULARDII 250 MG CAPSULE PO ×2 (12:01→17:45)
[2020-12-06 18:05] LABS: Chloride Rand Ur 73 mmol/L (32-290); Chloride/Creatinine Rand Ur 143 (23-275); Creatinine Random Urine 51 mg/dL (20-320)
[2020-12-06] MEDS: ATORVASTATIN 10 MG TABLET PO (20:47)
[2020-12-06] MEDS: SERTRALINE HCL 50 MG TABLET 100 MG PO (20:47)
[2020-12-07] VITALS (8 sets, daily range): BP systolic 103–114; BP diastolic 61–69; PULSE 79–102; RESP 16–18; TEMP 36–36.3; O2SAT 93–94
[2020-12-07] MEDS: LEVOTHYROXINE SODIUM 125 MCG TABLET PO (05:33)
[2020-12-07 05:45] LABS: Hematocrit 27.2 % (42.0-52.0); Mean Corpuscular HGB Conc 33.1 g/dl (32-36); Mean Corpuscular Hemoglobin 30.4 pg (26-34); Mean Corpuscular Volume 91.9 fl (80-100); Mean Platelet Volume 9.8 fl (7.4-10.4); Platelet Count Result 236 k/mm3 (150-375); Red Blood Count 2.96 M/mm3 (4.6-6.20); Red Cell Distribution Width 17.6 % (11.5-14.5); White Blood Count 19.5 K/mm3 (4.5-10.0)
[2020-12-07 06:03] LABS: Anion Gap 0 mmol/L (8-16); Blood Urea Nitrogen 26 mg/dL (9-20); Calcium 8.5 mg/dL (8.4-10.2); Carbon Dioxide 38 mmol/L (22-30); Chloride 93 mmol/L (98-107); Estimated CRCL calculation 81 ml/min; Estimated Glomerular Filt Rate > 60; Glucose 86 mg/dL (75-110); Potassium 2.9 mmol/L (3.4-5.0); Sodium 131 mmol/L (137-145)
[2020-12-07] MEDS: CLOPIDOGREL BISULFATE 75 MG TABLET PO (08:20)
[2020-12-07] MEDS: predniSONE 10 MG TABLET PO (08:20)
[2020-12-07] MEDS: VENLAFAXINE HCL XR 75 MG CAP.ER.24H PO (08:20)
[2020-12-07] MEDS: FAMOTIDINE 20 MG TABLET PO (08:20)
[2020-12-07] MEDS: FINASTERIDE 5 MG TABLET PO (08:20)
[2020-12-07] MEDS: ASPIRIN 81 MG ENTERIC TABLET PO (08:20)
[2020-12-07] MEDS: SACCHAROMYCES BOULARDII 250 MG CAPSULE PO ×3 (08:20→16:56)
[2020-12-07] MEDS: POTASSIUM CHLORIDE 20 MEQ PACKET (FOR LIQUID) 40 MEQ PO ×3 (08:20→16:56)
[2020-12-07 08:56] LABS: Lactic Acid Reflex 0.7 mmol/L (0.7-2.1)
--- NOTE | 2020-12-07 09:58 | PM.IMPN ---
Progress Note: A&P Assessment and Plan (1) Septic shock: Code(s): A41.9 - Sepsis, unspecified organism; R65.21 - Severe sepsis with septic shock Status: Resolved Assessment and Plan: Bp is better treated for UTI with IV rocephin, continue current treatment, pt improving slowly (2) Acute kidney injury: Code(s): N17.9 - Acute kidney failure, unspecified Status: Resolved Assessment and Plan: Continue to monitor BMP, creat is 0.8 (3) Urinary tract infection: Code(s): N39.0 - Urinary tract infection, site not specified Status: Acute Assessment and Plan: Pt is on iv Rocephin UC positive continue to monitor wcc. Wc is improving. (4) Elevated LFTs: Code(s): R79.89 - Other specified abnormal findings of blood chemistry Status: Acute Assessment and Plan: Continue to monitor (5) Elevated troponin: Code(s): R77.8 - Other specified abnormalities of plasma proteins Status: Acute Assessment and Plan: Continue to monitor, mild elevation may be sepsis related (6) Abnormal chest x-ray: Code(s): R93.89 - Abnormal findings on diagnostic imaging of other specified body structures Status: Acute Assessment and Plan: CXR NAD (7) Chronic anemia: Code(s): D64.9 - Anemia, unspecified Status: Acute Assessment and Plan: continue to monitor hb is 8 (8) Benign prostatic hyperplasia: Code(s): N40.0 - Benign prostatic hyperplasia without lower urinary tract symptoms Status: Chronic Assessment and Plan: pt is on finasteride (9) Hypertension: Code(s): I10 - Essential (primary) hypertension Status: Chronic Assessment and Plan: pt is on metoprololol (10) Hypothyroidism: Code(s): E03.9 - Hypothyroidism, unspecified Status: Chronic Assessment and Plan: pt is on levothryoxine (11) Diarrhea: Code(s): R19.7 - Diarrhea, unspecified Status: Acute Assessment and Plan: Improving on probiotics cdiff assay is negative. Subjective Date/time seen: 12/07/20 09:58 Interval history: Septic shock, UTI, possible bacteremia was in icu initially transferred out to the medical floor having some diarrhea. cdiff collected for watery stool. Pt looks tired complains of left lower abdominal pain. no fevers today. diarrhea settled, cultures show UTI. Wcc is high but is improving. Cdiff came back negative. Pt is improving slowly. Review of Systems Review of Systems: All systems reviewed & are unremarkable except as noted in HPI and below Exam Const: General: cooperative and ill appearing Nutritional Appearance: overweight Orientation/consciousness: oriented to person HENMT: Head: normal to inspection Resp: Effort & Inspection: no respiratory distress Auscultation: no rhonchi and no wheezes Cardio: Rate: regular rate Rhythm: regular rhythm GI: Inspection: normal to inspection and other (left lower quadrant ttp ) Auscultation: normal bowel sounds Neuro: General: oriented to person Objective Data Vital Signs Vital Signs: Vital Signs - 24 hr 12/06/20 12:00 12/06/20 13:55 12/06/20 16:00 Temperature 37.2 C Pulse Rate 120 H 105 H 109 H Respiratory Rate 20 Blood Pressure 106/55 L Pulse Oximetry 96 12/06/20 20:00 12/07/20 00:00 12/07/20 04:00 Temperature 36.7 C Pulse Rate 103 H 102 H 93 Respiratory Rate 16 Blood Pressure 111/63 Pulse Oximetry 95 12/07/20 05:26 Temperature 36.0 C L Pulse Rate 99 Respiratory Rate 16 Blood Pressure 110/69 Pulse Oximetry 93 Intake/Output Intake/Output: Intake & Output 12/04/20 12/05/20 12/06/20 12/07/20 23:59 23:59 23:59 23:59 Intake Total 1840 2440 1840 300 Output Total 677 403 9920 600 Balance 1090 1490 715 -300 Meds/Results Medications: Active Medications Generic Name Dose Route Start Last Admin Trade Name Freq PRN Reason Stop Dose Admin Aspi
[2020-12-07 19:10] LABS: Add Urine Microscopic? YES; Appearance Urine Clear (Clear); Bilirubin Urine Negative (Negative); Color Urine Yellow (Yellow); Glucose Urine UA 1+ mg/dL (Negative); Ketones Urine Negative (Negative); Leukocyte Esterase Ur 1+ LEU/UL (Negative); Mucus Urine Rare /lpf; Nitrate Urine Negative (Negative); Protein Urine 2+ mg/dL (Negative); Specific Grav Ur 1.017 (1.001-1.035); Squamous Epithelial Cell Urine Rare /hpf (Few); Transitional Epi Cells Urine Rare /hpf (None Seen); Urobilinogen Urine Negative mg/dL (<2.0); WBC Urine 21-30 /hpf
[2020-12-07 19:11] LABS: Blood Urine Negative (Negative)
[2020-12-07] MEDS: ATORVASTATIN 10 MG TABLET PO (20:49)
[2020-12-07] MEDS: SERTRALINE HCL 50 MG TABLET 100 MG PO (20:49)
[2020-12-08 05:46] VITALS: BP 114/75; PULSE 78; RESP 16; TEMP 36; O2SAT 95
[2020-12-08 05:50] LABS: Anion Gap 0 mmol/L (8-16); Blood Urea Nitrogen 23 mg/dL (9-20); Calcium 8.2 mg/dL (8.4-10.2); Carbon Dioxide 38 mmol/L (22-30); Chloride 95 mmol/L (98-107); Estimated CRCL calculation 81 ml/min; Estimated Glomerular Filt Rate > 60; Glucose 82 mg/dL (75-110); Potassium 3.7 mmol/L (3.4-5.0); Sodium 133 mmol/L (137-145)
[2020-12-08] MEDS: LEVOTHYROXINE SODIUM 125 MCG TABLET PO (05:53)
[2020-12-08] MEDS: FINASTERIDE 5 MG TABLET PO (09:34)
[2020-12-08] MEDS: POTASSIUM CHLORIDE 20 MEQ PACKET (FOR LIQUID) 40 MEQ PO ×3 (09:34→17:12)
[2020-12-08] MEDS: CLOPIDOGREL BISULFATE 75 MG TABLET PO (09:34)
[2020-12-08] MEDS: FAMOTIDINE 20 MG TABLET PO (09:34)
[2020-12-08] MEDS: ASPIRIN 81 MG ENTERIC TABLET PO (09:34)
[2020-12-08] MEDS: VENLAFAXINE HCL XR 75 MG CAP.ER.24H PO (09:35)
[2020-12-08] MEDS: predniSONE 10 MG TABLET PO (09:35)
[2020-12-08] MEDS: SACCHAROMYCES BOULARDII 250 MG CAPSULE PO ×3 (09:35→17:12)
--- NOTE | 2020-12-08 11:44 | WPDCDIQUERY2 ---
CDI Query Clarification Request - He is not having any chest pain though we will continue to trend troponins to peak. Most likely this is a type 2 infarct and demand ischemia stemming from septic shock has been documented in the H&P. -Troponins: 0.141, 0.114, 0.124 but no chest pain or EKG changes noted. Please clarify if type 2 infarct has been ruled in or ruled out. Please clarify if demand ischemia has been ruled in or ruled out.
[2020-12-08 11:46] VITALS: BMI 28.1
[2020-12-08 14:00] VITALS: BP 118/51; PULSE 72; RESP 18; TEMP 36.3; O2SAT 100
--- NOTE | 2020-12-08 16:26 | PM.IMPN ---
Progress Note: A&P Assessment and Plan (1) Septic shock: Code(s): A41.9 - Sepsis, unspecified organism; R65.21 - Severe sepsis with septic shock Status: Resolved Assessment and Plan: Related to the CLARA, sepsis from the UTI. Symptoms resolved. 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 Cortisol level was >123 and >61 the following morning. Will repeat tomorrow since may be related to the sepsis. Will wean off prednisone as well. (3) Acute kidney injury: Code(s): N17.9 - Acute kidney failure, unspecified Status: Resolved Assessment and Plan: Cr 4.9 on admission. Sutton catheter placed. Renal US showing no hydronephrosis. CLARA likely related to septic shock, hypotension, hypovolemia, diuretic use and ibuprofen. Creatinine improved to normal. Remove Sutton but may have underlying urine retention so monitor close. (4) Urinary tract infection: Code(s): N39.0 - Urinary tract infection, site not specified Status: Acute Assessment and Plan: UCx growing Klebsiella aerogens sensitive to Rocephin. Day 7 of Rocephin. BCx negative. Repeat UA noted and UCx pending. Still has Sutton in place. Voiding trial in the morning. Follow up on repeat UCx (5) Elevated LFTs: Code(s): R79.89 - Other specified abnormal findings of blood chemistry Status: Acute Assessment and Plan: ASt peaked at 133 and ALT at 129. Probable mild shock liver. Levels have improved. Continue to monitor (6) Elevated troponin: Code(s): R77.8 - Other specified abnormalities of plasma proteins Status: Acute Assessment and Plan: Troponin 0.141 on admisison and trended down. EKG showing no acute ischemic changes. [place] patient had a Type II [place] from the septic shock. Continue to monitor (7) Abnormal chest x-ray: Code(s): R93.89 - Abnormal findings on diagnostic imaging of other specified body structures Status: Acute Assessment and Plan: CXR on admission showing patchy mid and lower lung field infiltrates, probably atelectasis. Most recent CXR no active disease. (8) Chronic anemia: Code(s): D64.9 - Anemia, unspecified Status: Acute Assessment and Plan: Hgb 9-10 range and stable. Continue to monitor (9) Benign prostatic hyperplasia: Code(s): N40.0 - Benign prostatic hyperplasia without lower urinary tract symptoms Status: Chronic Assessment and Plan: Stable. Continue finasteride (10) Hypertension: Code(s): I10 - Essential (primary) hypertension Status: Chronic Assessment and Plan: Patient's blood pressure was reviewed on 12/08 Blood pressure remains well controlled. Will follow. (11) Hypothyroidism: Code(s): E03.9 - Hypothyroidism, unspecified Status: Chronic Assessment and Plan: TSH 0.4 with normal FT4. Continue levothryoxine. (12) Diarrhea: Code(s): R19.7 - Diarrhea, unspecified Status: Acute Assessment and Plan: CDiff assay negative. Improving on probiotics (13) DVT prophylaxis: Code(s): Z29.9 - Encounter for prophylactic measures, unspecified Status: Acute Assessment and Plan: SCDs Subjective Date/time seen: 12/08/20 16:26 Interval history: Date of service 12/08 70yo male with hx of CVA and CAD here for septic shock admitted to the ICU. Assuming care. Chart reviewed. He slept well last night. No n/v. Eating okay. No CP. right flank pain x 2 weeks Exam Narrative: Exam Narrative: AF 97.4 118/51 72 18 100% ra Gen - NARD Chest - rt base crackles o/w clear, nml RR CV - RRR S1/S2 Abd - Soft, NT/ND, Positive BS. mild pain right flank at the most distal rib Ext - trace peda
[2020-12-08] MEDS: ATORVASTATIN 10 MG TABLET PO (20:44)
[2020-12-08] MEDS: SERTRALINE HCL 50 MG TABLET 100 MG PO (20:44)
[2020-12-08 22:00] VITALS: BP 110/59; PULSE 95; RESP 16; TEMP 36.4; O2SAT 91
[2020-12-09 05:13] VITALS: BP 106/70; PULSE 87; RESP 16; TEMP 36.2; O2SAT 95
[2020-12-09] MEDS: LEVOTHYROXINE SODIUM 125 MCG TABLET PO (06:37)
[2020-12-09 06:50] LABS: Basophils Absolute Auto 0.1 K/mm3 (0.0-0.1); Basophils Percent Auto 0.3 % (0.2-1.2); Eosinophils Absolute Auto 0.1 K/mm3 (0-0.3); Eosinophils Percent Auto 0.6 % (0-4.4); Hematocrit 27.3 % (42.0-52.0); Hemoglobin 8.7 g/dL (14.0-18.0); Immature Granulocyte Absolute 0.71 K/mm3 (0.00-0.031); Immature Granulocyte Percent A 3.6 % (0-0.5); Lymphocytes Absolute Auto 0.93 K/mm3 (0.9-3.2); Lymphocytes Percent Auto 4.7 % (18.3-44.2); Mean Corpuscular HGB Conc 31.9 g/dl (32-36); Mean Corpuscular Hemoglobin 30.1 pg (26-34); Mean Corpuscular Volume 94.5 fl (80-100); Mean Platelet Volume 9.9 fl (7.4-10.4); Monocytes Absolute Auto 0.7 K/mm3 (0.1-0.6); Monocytes Percent Auto 3.3 % (2.6-8.5); Neutrophils Absolute Auto 17.5 K/mm3 (1.3-6.7); Neutrophils Percent Auto 87.5 % (45.5-73.1); Nucleated Red Blood Cells Perc 0.2 % (0.0-0.2); Platelet Count Result 348 k/mm3 (150-375); Red Blood Count 2.89 M/mm3 (4.6-6.20); Red Cell Distribution Width 17.2 % (11.5-14.5)
[2020-12-09 07:03] LABS: Alanine Aminotransferase 205 U/L (4-50); Albumin Level 2.5 g/dL (3.5-5.1); Alkaline Phosphatase 129 U/L (38-126); Anion Gap -2 mmol/L (8-16); Aspartate Amino Transferase 200 U/L (17-59); Bilirubin,Total 0.2 mg/dL (0.2-1.3); Blood Urea Nitrogen 22 mg/dL (9-20); Calcium 8.2 mg/dL (8.4-10.2); Carbon Dioxide 37 mmol/L (22-30); Chloride 96 mmol/L (98-107); Estimated CRCL calculation 81 ml/min; Estimated Glomerular Filt Rate > 60; Glucose 82 mg/dL (75-110); Potassium 4.3 mmol/L (3.4-5.0); Sodium 131 mmol/L (137-145)
[2020-12-09 07:56] VITALS: BP 110/87; PULSE 98; RESP 24; TEMP 35.4; O2SAT 100
[2020-12-09] MEDS: BUMETANIDE INJ 1 MG/4 ML VIAL IV PUSH (09:13)
[2020-12-09] MEDS: VENLAFAXINE HCL XR 75 MG CAP.ER.24H PO (09:14)
[2020-12-09] MEDS: CLOPIDOGREL BISULFATE 75 MG TABLET PO (09:14)
[2020-12-09] MEDS: ASPIRIN 81 MG ENTERIC TABLET PO (09:14)
[2020-12-09] MEDS: FINASTERIDE 5 MG TABLET PO (09:14)
[2020-12-09] MEDS: SACCHAROMYCES BOULARDII 250 MG CAPSULE PO ×3 (09:14→18:19)
[2020-12-09] MEDS: predniSONE 5 MG TABLET PO (09:16)
[2020-12-09] MEDS: predniSONE 1 MG TABLET 4 MG PO (09:16)
[2020-12-09] MEDS: FAMOTIDINE 20 MG TABLET PO (09:18)
[2020-12-09 13:41] VITALS: BP 112/68; PULSE 98; RESP 24; TEMP 35.8; O2SAT 96
[2020-12-09 14:00] VITALS: BP 112/68; PULSE 98; RESP 24; TEMP 35.8; O2SAT 96
--- NOTE | 2020-12-09 14:24 | PC.NURSE ---
On 12/09/20, the student, [Karen Min ], provided care and completed [facility] documentation on this patient. I have reviewed the student's documentation and agree with the findings.
--- NOTE | 2020-12-09 17:46 | PM.IMPN ---
Progress Note: A&P Assessment and Plan (1) Septic shock: Code(s): A41.9 - Sepsis, unspecified organism; R65.21 - Severe sepsis with septic shock Status: Resolved Assessment and Plan: Related to the CLARA from the UTI. Symptoms resolved. 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 Cortisol level was >123 on 12/01/20 and >61 the following morning. Repeat cortisol level this morning was 21.6. Will wean off prednisone. (3) Acute kidney injury: Code(s): N17.9 - Acute kidney failure, unspecified Status: Resolved Assessment and Plan: Cr 4.9 on admission. Sutton catheter placed. Renal US showing no hydronephrosis. CLARA likely related to septic shock, hypotension, hypovolemia, diuretic use and ibuprofen. Creatinine improved to normal. Monitor closely. (4) Urinary tract infection: Code(s): N39.0 - Urinary tract infection, site not specified Status: Acute Assessment and Plan: UCx growing Klebsiella aerogens sensitive to Rocephin. Day 8 of Rocephin. BCx negative. Repeat UA 12/07 noted and UCx negative. Sutton removed and voiding well. (5) Elevated LFTs: Code(s): R79.89 - Other specified abnormal findings of blood chemistry Status: Acute Assessment and Plan: AST peaked at 133 and ALT at 129 before trending down. Probable mild shock liver. Levels worsened today at 200 and 205 respectfully. RUQ US 12/02 showing distended GB with mild GB wall thickening. Could be from GB disease with the pain or heaptic congestion. Bumex x1. Hold lipitor. Repeat RUQ US. Consider HIDA. Unclear if the persistent leukocytosis playing a part in this. Add Flagyl. (6) Elevated troponin: Code(s): R77.8 - Other specified abnormalities of plasma proteins Status: Acute Assessment and Plan: Troponin 0.141 on admisison and trended down. EKG showing no acute ischemic changes. [place] patient had a Type II ID from the septic shock. Continue to monitor (7) Abnormal chest x-ray: Code(s): R93.89 - Abnormal findings on diagnostic imaging of other specified body structures Status: Acute Assessment and Plan: CXR on admission showing patchy mid and lower lung field infiltrates, probably atelectasis. Most recent CXR no active disease. Remains on RA (8) Chronic anemia: Code(s): D64.9 - Anemia, unspecified Status: Acute Assessment and Plan: Hgb has been running in the 9-10 range and stable but today Hgb 8.7. Check B12, iron studies. Continue to monitor (9) Benign prostatic hyperplasia: Code(s): N40.0 - Benign prostatic hyperplasia without lower urinary tract symptoms Status: Chronic Assessment and Plan: Stable. Continue finasteride (10) Hypertension: Code(s): I10 - Essential (primary) hypertension Status: Chronic Assessment and Plan: Patient's blood pressure was reviewed on 12/09 Blood pressure remains well controlled. Will follow. (11) Hypothyroidism: Code(s): E03.9 - Hypothyroidism, unspecified Status: Chronic Assessment and Plan: TSH 0.4 with normal FT4. Continue levothryoxine. (12) Diarrhea: Code(s): R19.7 - Diarrhea, unspecified Status: Acute Assessment and Plan: CDiff assay negative. Improving on probiotics (13) DVT prophylaxis: Code(s): Z29.9 - Encounter for prophylactic measures, unspecified Status: Acute Assessment and Plan: lovenox Subjective Date/time seen: 12/09/20 17:46 Interval history: Date of service 12/09 70yo male with hx of CVA and CAD here for septic shock admitted to the ICU. No CP or SOB. No n/v. Complains of abd pain in the RUQ. Also with loose stools with 2 stools
[2020-12-09 17:59] LABS: SARS-CoV-2 RNA PCR Negative
[2020-12-09] MEDS: ENOXAPARIN 40 MG/0.4 ML SYRINGE SUB-Q (19:04)
[2020-12-09] MEDS: metroNIDAZOLE 500 MG/ISO 100ML 500 MG/100 ML BAG 100 MG IVPB ×2 (19:04→23:21)
[2020-12-09] MEDS: SERTRALINE HCL 50 MG TABLET 100 MG PO (20:04)
[2020-12-09 22:00] VITALS: BP 115/63; PULSE 81; RESP 20; TEMP 36.6; O2SAT 94
[2020-12-10] MEDS: metroNIDAZOLE 500 MG/ISO 100ML 500 MG/100 ML BAG 100 MG IVPB ×4 (05:06→23:34)
[2020-12-10 05:31] VITALS: BP 102/65; PULSE 87; RESP 20; TEMP 36.4; O2SAT 95
[2020-12-10] MEDS: LEVOTHYROXINE SODIUM 125 MCG TABLET PO (05:35)
[2020-12-10 05:41] LABS: Basophils Percent Auto 0.2 % (0.2-1.2); Eosinophils Absolute Auto 0.1 K/mm3 (0-0.3); Eosinophils Percent Auto 0.7 % (0-4.4); Hematocrit 26.6 % (42.0-52.0); Hemoglobin 8.5 g/dL (14.0-18.0); Immature Granulocyte Absolute 0.66 K/mm3 (0.00-0.031); Lymphocytes Absolute Auto 0.89 K/mm3 (0.9-3.2); Lymphocytes Percent Auto 5.5 % (18.3-44.2); Mean Corpuscular Hemoglobin 29.4 pg (26-34); Mean Platelet Volume 9.6 fl (7.4-10.4); Monocytes Absolute Auto 0.6 K/mm3 (0.1-0.6); Monocytes Percent Auto 3.4 % (2.6-8.5); Neutrophils Absolute Auto 14.1 K/mm3 (1.3-6.7); Neutrophils Percent Auto 86.2 % (45.5-73.1); Nucleated Red Blood Cells Perc 0.2 % (0.0-0.2); Platelet Count Result 373 k/mm3 (150-375); Red Blood Count 2.89 M/mm3 (4.6-6.20); White Blood Count 16.3 K/mm3 (4.5-10.0)
[2020-12-10 05:59] LABS: Alanine Aminotransferase 215 U/L (4-50); Albumin Level 2.6 g/dL (3.5-5.1); Alkaline Phosphatase 125 U/L (38-126); Anion Gap 2 mmol/L (8-16); Aspartate Amino Transferase 170 U/L (17-59); Bilirubin,Total 0.3 mg/dL (0.2-1.3); Blood Urea Nitrogen 24 mg/dL (9-20); Calcium 8.2 mg/dL (8.4-10.2); Carbon Dioxide 36 mmol/L (22-30); Chloride 94 mmol/L (98-107); Estimated CRCL calculation 81 ml/min; Estimated Glomerular Filt Rate > 60; Glucose 80 mg/dL (75-110); Potassium 3.2 mmol/L (3.4-5.0); Sodium 132 mmol/L (137-145)
[2020-12-10 06:19] LABS: Iron 45 ug/dL (49-181)
[2020-12-10 06:28] LABS: Percent Iron Saturation 18 % (20-50)
[2020-12-10 07:04] LABS: Folic Acid 6.9 ng/mL (2.76->20)
[2020-12-10] MEDS: predniSONE 1 MG TABLET 4 MG PO (08:53)
[2020-12-10] MEDS: CLOPIDOGREL BISULFATE 75 MG TABLET PO (08:53)
[2020-12-10] MEDS: FAMOTIDINE 20 MG TABLET PO (08:53)
[2020-12-10] MEDS: predniSONE 5 MG TABLET PO (08:53)
[2020-12-10] MEDS: VENLAFAXINE HCL XR 75 MG CAP.ER.24H PO (08:53)
[2020-12-10] MEDS: FINASTERIDE 5 MG TABLET PO (08:53)
[2020-12-10] MEDS: SACCHAROMYCES BOULARDII 250 MG CAPSULE PO ×3 (08:53→17:03)
[2020-12-10] MEDS: ASPIRIN 81 MG ENTERIC TABLET PO (08:54)
[2020-12-10] MEDS: POTASSIUM CHLORIDE 20 MEQ TABLET 40 MEQ PO (09:28)
--- NOTE | 2020-12-10 10:23 | PM.IMPN ---
Progress Note: A&P Assessment and Plan (1) Cholecystitis: Code(s): K81.9 - Cholecystitis, unspecified Status: Acute Assessment and Plan: AST peaked at 133 and ALT at 129 before trending down. Probable mild shock liver. Levels worsened on 12/09 to 200 and 205 respectfully. RUQ US 12/02 showing distended GB with mild GB wall thickening. Lipitor held. Flagyl started and Rocephin continued. Repeat RUQ US today showing distended GB with sludge and wall thickening, which is indeterminate for acute cholecystitis. He does have RUQ pain and elevated WBC which is better with the addition of Flagyl. General surgery consult. (2) Elevated LFTs: Code(s): R79.89 - Other specified abnormal findings of blood chemistry Status: Acute Assessment and Plan: AST peaked at 133 and ALT at 129 before trending down. Probable mild shock liver. Levels worsened on 12/09 at 200 and 205 respectfully. [place] related to acute cholecystitis. (3) Septic shock: Code(s): A41.9 - Sepsis, unspecified organism; R65.21 - Severe sepsis with septic shock Status: Resolved Assessment and Plan: Related to the CLARA from the UTI +/- GB disease. Symptoms resolved. (4) Hypercortisolism: Code(s): E24.9 - [place]'s syndrome, unspecified Status: Acute Assessment and Plan: It is noted that he has been taking prednisone since he had COVID July 2020 for unclear reasons. Cortisol level was >123 on 12/01/20 and >61 the following morning. Repeat cortisol level 12/09 was 21.6. Wean off prednisone slowly. (5) Acute kidney injury: Code(s): N17.9 - Acute kidney failure, unspecified Status: Resolved Assessment and Plan: Cr 4.9 on admission. Sutton catheter placed. Renal US showing no hydronephrosis. CLARA likely related to septic shock, hypotension, hypovolemia, diuretic use and ibuprofen. Creatinine improved to normal. Monitor closely. Watch for urine retention. (6) Urinary tract infection: Code(s): N39.0 - Urinary tract infection, site not specified Status: Acute Assessment and Plan: UCx growing Klebsiella aerogens sensitive to Rocephin. Day 9 of Rocephin. BCx negative. Repeat UA 12/07 noted and UCx negative. Sutton removed and voiding well. Continue to monitor. (7) Elevated troponin: Code(s): R77.8 - Other specified abnormalities of plasma proteins Status: Acute Assessment and Plan: Troponin 0.141 on admisison and trended down. EKG showing no acute ischemic changes. [place] patient had a Type II [place] from the septic shock. Continue to monitor (8) Abnormal chest x-ray: Code(s): R93.89 - Abnormal findings on diagnostic imaging of other specified body structures Status: Acute Assessment and Plan: CXR on admission showing patchy mid and lower lung field infiltrates, probably atelectasis. Most recent CXR no active disease. Remains on RA (9) Chronic anemia: Code(s): D64.9 - Anemia, unspecified Status: Acute Assessment and Plan: Hgb has been running in the 9-10 range and stable but today Hgb 8.5. B12 and folate normal. Iron studies more consistent with anemia of chronic disease but add iron given the low saturation. No evidence of acute blood loss. Continue to monitor. (10) Benign prostatic hyperplasia: Code(s): N40.0 - Benign prostatic hyperplasia without lower urinary tract symptoms Status: Chronic Assessment and Plan: Stable. Continue finasteride (11) Cerebrovascular accident: Code(s): I63.9 - Cerebral infarction, unspecified Status: Acute Assessment and Plan: Patient has a hx of CVA x3 in June 2015, July 2016, and August 2020 with residual right-sided weakness. He remains on ASA and Plavix. Statin held due to elevated LFTs. (12) Hypertension: Code(s): I10 - Essential (primary) hypertension Status:
--- NOTE | 2020-12-10 11:11 | PCNFU ---
Nutrition Follow-Up Complete: Inadequate Oral Intake as related to sepsis as evidenced by poor po intake reported. Goal: Meet estimated nutritional needs Progressing towards goal. We will continue current goal. Pt current nutrition is NPO. Last recorded weight is 96.2 kg,up from 94.2 on admit. Bowel Motility:+BM 3/4 Labs Reviewed:K 3.2,Na 132,Alb 2.6 Meds Noted: Rocephin, Plavix,Prednisone,Effexor,Proscar, Florestor. Additional Notes: Patient is currently NPO for US of gallbladder. Prior to NPO diet, patient had Minced and Moist, Level 5 with Ensure Enlive TID. Oral intake has been 5-30% of meals. Diet orders are appropriate at this time. Monitoring: weight, labs, oral intake every 5 days.
--- NOTE | 2020-12-10 13:15 | PM.CNGS ---
Assessment and Plan Assessment and plan (1) Cholecystitis: Code(s): K81.9 - Cholecystitis, unspecified Status: Acute Assessment and Plan: will get HIDA for further eval, pt is very poor surgical candidate, exam benign, if HIDA positive will attempt to manage conservatively c diet and abx, may need perc cholecystectomy tube if fails conservative measures (2) Septic shock: Code(s): A41.9 - Sepsis, unspecified organism; R65.21 - Severe sepsis with septic shock Status: Resolved Assessment and Plan: largely resolved, cont abx (3) Acute kidney injury: Code(s): N17.9 - Acute kidney failure, unspecified Status: Resolved Assessment and Plan: improved, naik out and voiding (4) UTI (urinary tract infection): Code(s): N39.0 - Urinary tract infection, site not specified Status: Acute Assessment and Plan: cont abx (5) 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 Pt also c ARF at that time. Pt has been slowly improving c IV abx and supportive mgmt. Pt found to have elevated LFTs and persistent leukocytosis. Subsequent U/S suggestive of cholecystitis. Pt is poor historian, but denies any abd pain, nausea, emesis at this time. Pt had previously been bhavya clears. Review of Systems Review of Systems: ROS unobtainable: Yes unobtainable due to mental status PMFSH Past Medical History Medical History Antithrombin III deficiency Benign prostatic hyperplasia Carotid artery disease Status post right carotid endarterectomy. CTA on 07/27/2020 showed 30% left carotid bulb stenosis and 20% left carotid siphon stenosis. 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 Chronic anemia Cognitive dysfunction Coronary artery disease With history of NE status post PTCA/stent. COVID-19 (~07/2020) Depression with anxiety Gastroesophageal reflux disease Hyperlipidemia Hypertension Hypothyroidism Occlusion of left vertebral artery Noted on imaging in 07/2020 with reconstitution. 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 History of cardiac catheterization With history of PTCA/stent. History of hemorrhoidectomy History of loop recorder History of right-sided carotid endarterectomy (~10/11/16) Family History Family History Other Congestive heart failure Coronary artery disease Diabetes mellitus Social History Social History Social History: Surrogate decision maker: Stacey Perez, friend. Code status: Full code. Smoking status: Former smoker Tobacco type: cigarettes Additional smoking assessment comments: Patient states he smoked one pack of cigarettes a week. Alcohol intake: never Substance use: never Additional living arrangements comments: Previously lived in assisted living at [facility] although he is now at [facility] after his most recent stroke. twice, no children. Additional occupation/education comments: Retired. He used to work security and drove a med car as well. Gender identity (if verbalized by the patient): Male Sexual Orientation (if Verbalized by the Patient): Straight or Heterosexual Spiritual care concerns: No Meds Home
[2020-12-10 14:00] VITALS: BP 111/67; PULSE 85; RESP 14; TEMP 36.1; O2SAT 98
[2020-12-10] MEDS: ALTEPLASE 2 MG VIAL (CATHFLO) IV PUSH (15:40)
[2020-12-10] MEDS: FERROUS SULFATE 324 MG TABLET PO (17:03)
[2020-12-10] MEDS: ENOXAPARIN 40 MG/0.4 ML SYRINGE SUB-Q (17:03)
[2020-12-10] MEDS: CENTRAL LINE FLUSH 10 ML IV PUSH ×2 (17:56→21:15)
[2020-12-10] MEDS: SERTRALINE HCL 50 MG TABLET 100 MG PO (20:33)
[2020-12-10 21:15] VITALS: BP 113/69; PULSE 81; RESP 16; TEMP 36.8; O2SAT 97
[2020-12-11] MEDS: metroNIDAZOLE 500 MG/ISO 100ML 500 MG/100 ML BAG 100 MG IVPB ×4 (05:18→23:23)
[2020-12-11] MEDS: CENTRAL LINE FLUSH 10 ML IV PUSH ×4 (05:18→23:23)
[2020-12-11] MEDS: LEVOTHYROXINE SODIUM 125 MCG TABLET PO (05:32)
[2020-12-11 05:36] VITALS: BP 107/60; PULSE 89; RESP 16; TEMP 36.6; O2SAT 94
[2020-12-11 05:58] LABS: Alanine Aminotransferase 146 U/L (4-50); Albumin Level 2.5 g/dL (3.5-5.1); Alkaline Phosphatase 112 U/L (38-126); Anion Gap 0 mmol/L (8-16); Aspartate Amino Transferase 81 U/L (17-59); Bilirubin,Total 0.3 mg/dL (0.2-1.3); Blood Urea Nitrogen 19 mg/dL (9-20); Calcium 7.9 mg/dL (8.4-10.2); Carbon Dioxide 35 mmol/L (22-30); Chloride 95 mmol/L (98-107); Estimated CRCL calculation 92 ml/min; Estimated Glomerular Filt Rate > 60; Glucose 76 mg/dL (75-110); Magnesium 1.2 mg/dL (1.6-2.3); Phosphorus 3.3 mg/dL (2.5-4.5); Potassium 3.1 mmol/L (3.4-5.0); Sodium 130 mmol/L (137-145)
[2020-12-11] MEDS: VENLAFAXINE HCL XR 75 MG CAP.ER.24H PO (08:49)
[2020-12-11] MEDS: CLOPIDOGREL BISULFATE 75 MG TABLET PO (08:50)
[2020-12-11] MEDS: predniSONE 5 MG TABLET PO (08:50)
[2020-12-11] MEDS: predniSONE 1 MG TABLET 4 MG PO (08:50)
[2020-12-11] MEDS: FERROUS SULFATE 324 MG TABLET PO ×2 (08:50→17:38)
[2020-12-11] MEDS: SACCHAROMYCES BOULARDII 250 MG CAPSULE PO ×2 (08:50→17:38)
[2020-12-11] MEDS: FINASTERIDE 5 MG TABLET PO (08:50)
[2020-12-11] MEDS: FAMOTIDINE 20 MG TABLET PO (08:50)
[2020-12-11] MEDS: ASPIRIN 81 MG ENTERIC TABLET PO (08:50)
[2020-12-11] MEDS: POTASSIUM CHLORIDE 20 MEQ TABLET 40 MEQ PO (09:07)
[2020-12-11 09:21] LABS: Basophils Percent Auto 0.2 % (0.2-1.2); Eosinophils Absolute Auto 0.1 K/mm3 (0-0.3); Eosinophils Percent Auto 0.7 % (0-4.4); Hematocrit 27.9 % (42.0-52.0); Hemoglobin 8.9 g/dL (14.0-18.0); Immature Granulocyte Absolute 0.32 K/mm3 (0.00-0.031); Immature Granulocyte Percent A 2.2 % (0-0.5); Lymphocytes Absolute Auto 0.69 K/mm3 (0.9-3.2); Lymphocytes Percent Auto 4.7 % (18.3-44.2); Mean Corpuscular HGB Conc 31.9 g/dl (32-36); Mean Corpuscular Hemoglobin 30.2 pg (26-34); Mean Corpuscular Volume 94.6 fl (80-100); Mean Platelet Volume 9.5 fl (7.4-10.4); Monocytes Absolute Auto 0.5 K/mm3 (0.1-0.6); Monocytes Percent Auto 3.5 % (2.6-8.5); Neutrophils Absolute Auto 13.1 K/mm3 (1.3-6.7); Neutrophils Percent Auto 88.7 % (45.5-73.1); Nucleated Red Blood Cells Perc 0.1 % (0.0-0.2); Platelet Count Result 409 k/mm3 (150-375); Red Blood Count 2.95 M/mm3 (4.6-6.20); Red Cell Distribution Width 17.2 % (11.5-14.5); White Blood Count 14.8 K/mm3 (4.5-10.0)
[2020-12-11] MEDS: MAGNESIUM SULF 2 GM/WATER 50ML 2 GM/50 ML BAG IVPB (09:23)
--- NOTE | 2020-12-11 09:38 | PM.PNGS ---
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 - [place]'s syndrome, unspecified Status: Acute Assessment and Plan: wean off steroids Subjective Subjective Date/Time Seen: 12/11/20 09:38 feels better today, more alert and coherent, denies any abd pain, nausea Review of Systems Review of Systems: All systems reviewed & are unremarkable except as noted in HPI and below Exam Const: General: cooperative, no acute distress and ill appearing Nutritional Appearance: obese Orientation/consciousness: oriented to person and oriented to place Resp: Effort & Inspection: normal respiratory effort Auscultation: diminished lung sounds Cardio: Rate: regular rate Rhythm: regular rhythm GI: Inspection: normal to inspection and distended GI Palp: Yes Soft to palpation, No Tenderness to palpation present (GI), No Guarding due to palpation present (GI) and No Rigid due to palpation Other: soft, mod dist, NT Objective Data Vital Signs Vital Signs: Vital Signs - 24 hr 12/10/20 14:00 12/10/20 21:15 12/11/20 05:36 Temperature 36.1 C L 36.8 C 36.6 C Pulse Rate 85 81 89 Respiratory Rate 14 16 16 Blood Pressure 111/67 113/69 107/60 Pulse Oximetry 98 97 94 Intake/Output Intake/Output: Intake & Output 12/08/20 12/09/20 12/10/20 12/11/20 23:59 23:59 23:59 23:59 Intake Total 980 1270 1365 620 Output Total 875 350 Balance 558 243 0491 620 Meds/Results Medications: Active Medications Generic Name Dose Route Start Last Admin Trade Name Freq PRN Reason Stop Dose Admin Alteplase, Recombinant 2 mg 12/10/20 12:00 12/10/20 15:40 Alteplase 2 Mg Vial (Cathflo) IV PUSH 2 mg ONCE PRN Administration Line Occlusion Aspirin 81 mg 12/02/20 09:00 12/11/20 08:50 Aspirin 81 Mg Enteric Tablet PO 81 mg DAILY BENNY Administration Clopidogrel Bisulfate 75 mg 12/02/20 09:00 12/11/20 08:50 Clopidogrel Bisulfate 75 Mg Tablet PO 75 mg DAILY BENNY Administration Enoxaparin Sodium 40 mg 12/10/20 18:00 12/10/20 17:03 Enoxaparin 40 Mg/0.4 Ml Syringe SUB-Q 40 mg Q24H BENNY Administration Famotidine 20 mg 12/02/20 09:00 12/11/20 08:50 Famotidine 20 Mg Tablet PO 20 mg DAILY [facility] Administration Ferrous Sulfate 324 mg 12/10/20 17:00 12/11/20 08:50 Ferrous Sulfate 324 Mg Tablet PO 324 mg BIDWM BENNY Administration Finasteride 5 mg 12/02/20 09:00 12/11/20 08:50 Finasteride 5 Mg Tablet PO 5 mg QAM [facility] Administration Ceftriaxone Sodium/Dextrose 1 gm in 50 mls @ 100 mls/hr 12/02/20 09:00 12/11/20 09:01 Rocephin 1 Gm/D5w 50 Ml IVPB 100 mls/hr QAM [facility] Administration Metronidazole 500 mg in 100 mls @ 100 mls/hr 12/09/20 18:30 12/11/20 06:18 Flagyl 500 Mg/Iso Soln 100 Ml IVPB Infused Q6HR BENNY Infusion Levothyroxine Sodium 125 mcg 12/02/20 09:00 12/11/20 05:32 Levothyroxine Sodium 125 Mcg Tablet PO 125 mcg DAILY@0630 [facility] Administration Miconazole Nitrate 1 applic 12/09/20 21:00 12/11/20 08:49 Miconazole 2% Antifungal Ointment 56 Gm TOPICAL 1 applic Q12HR [facility] Administration Prednisone 4 mg 12/09/20 08:00 12/11/20 08:50 Prednisone 1 Mg Tablet PO 4 mg DAILY@0800 [facility] Administration Prednisone 5 mg 12/09/20 08:00 12/11/20 08:50 Prednisone 5 Mg Tablet PO 5 mg DAILY@0800 [facility] Administration Saccharomyces Boulardii 250 mg 12/06/20 13:00 12/11/20 08:50 Saccharomy
[2020-12-11 09:53] LABS: Anisocytosis 1+ (NORMAL); Ovalocytes 1+ (NORMAL); Platelet Estimate Increased (Adequate)
[2020-12-11 14:00] VITALS: BP 123/73; PULSE 89; RESP 18; TEMP 36.2; O2SAT 96
[2020-12-11] MEDS: MORPHINE SULFATE (*CRX) 2 MG/ML INJ IV PUSH (15:41)
--- NOTE | 2020-12-11 17:10 | PM.IMPN ---
Progress Note: A&P Assessment and Plan (1) Cholecystitis: Code(s): K81.9 - Cholecystitis, unspecified Status: Acute Assessment and Plan: AST peaked at 133 and ALT at 129 before trending down. Probable mild shock liver. Levels worsened on 12/09 to 200 and 205 respectfully. RUQ US 12/02 showing distended GB with mild GB wall thickening. Lipitor held. Flagyl started and Rocephin continued. Repeat RUQ US 12/10 showing distended GB with sludge and wall thickening, which is indeterminate for acute cholecystitis. He does have RUQ pain and elevated WBC which is better with the addition of Flagyl. General surgery consulted and appreciate their input. HIDA scan has returned and is consistent with acute cholecystitis. Discussed with GenSurg - plan to see how patieint does with diet advanced to low fat. If okay, then can be treated conservatively. If not, then will need percutaneous drain (2) Elevated LFTs: Code(s): R79.89 - Other specified abnormal findings of blood chemistry Status: Acute Assessment and Plan: AST peaked at 133 and ALT at 129 before trending down. Probable mild shock liver. Levels worsened on 12/09 at 200 and 205 respectfully. [place] related to acute cholecystitis. Levels improving since adding Flagyl. As above (3) Septic shock: Code(s): A41.9 - Sepsis, unspecified organism; R65.21 - Severe sepsis with septic shock Status: Resolved Assessment and Plan: Related to the CLARA from the UTI +/- GB disease. Symptoms resolved. (4) Hypercortisolism: Code(s): E24.9 - [place]'s syndrome, unspecified Status: Acute Assessment and Plan: It is noted that he has been taking prednisone since he had COVID July 2020 for unclear reasons. Cortisol level was >123 on 12/01/20 and >61 the following morning. Repeat cortisol level 12/09 was 21.6. Wean off prednisone slowly. (5) Acute kidney injury: Code(s): N17.9 - Acute kidney failure, unspecified Status: Resolved Assessment and Plan: Cr 4.9 on admission. Sutton catheter placed. Renal US showing no hydronephrosis. [place] likely related to septic shock, hypotension, hypovolemia, diuretic use and ibuprofen. Creatinine improved to normal. Monitor closely. Watch for urine retention. (6) Urinary tract infection: Code(s): N39.0 - Urinary tract infection, site not specified Status: Acute Assessment and Plan: UCx growing Klebsiella aerogens sensitive to Rocephin. BCx negative. Repeat UA 12/07 noted and UCx negative. Sutton removed and voiding well. Completed abx for UTI. Continue to monitor. (7) Elevated troponin: Code(s): R77.8 - Other specified abnormalities of plasma proteins Status: Acute Assessment and Plan: Troponin 0.141 on admisison and trended down. EKG showing no acute ischemic changes. [place] patient had a Type II [place] from the septic shock. Continue to monitor (8) Abnormal chest x-ray: Code(s): R93.89 - Abnormal findings on diagnostic imaging of other specified body structures Status: Acute Assessment and Plan: CXR on admission showing patchy mid and lower lung field infiltrates, probably atelectasis. Most recent CXR no active disease. Remains on RA. (9) Chronic anemia: Code(s): D64.9 - Anemia, unspecified Status: Acute Assessment and Plan: Hgb has been running mostlyin the 9-10 range and stable. B12 and folate normal. Iron studies more consistent with anemia of chronic disease but add iron given the low saturation. No evidence of acute blood loss. Continue to monitor. (10) Benign prostatic hyperplasia: Code(s): N40.0 - Benign prostatic hyperplasia without lower urinary tract symptoms Status: Chronic Assessment and Plan: Stable. Continue finasteride (11) Cerebrovascular accident: Code(s): I63.9 - Cerebral infarction, unspecified Status: A
[2020-12-11] MEDS: ENOXAPARIN 40 MG/0.4 ML SYRINGE SUB-Q (17:38)
[2020-12-11] MEDS: SERTRALINE HCL 50 MG TABLET 100 MG PO (20:38)
[2020-12-11 21:32] VITALS: BP 100/63; PULSE 87; RESP 18; TEMP 36.4; O2SAT 95
[2020-12-12 05:01] LABS: Hematocrit 27.8 % (42.0-52.0); Hemoglobin 8.8 g/dL (14.0-18.0); Mean Corpuscular HGB Conc 31.7 g/dl (32-36); Mean Corpuscular Hemoglobin 29.9 pg (26-34); Mean Corpuscular Volume 94.6 fl (80-100); Platelet Count Result 403 k/mm3 (150-375); Red Blood Count 2.94 M/mm3 (4.6-6.20); White Blood Count 11.9 K/mm3 (4.5-10.0)
[2020-12-12 05:14] LABS: Alanine Aminotransferase 100 U/L (4-50); Albumin Level 2.5 g/dL (3.5-5.1); Alkaline Phosphatase 124 U/L (38-126); Anion Gap 2 mmol/L (8-16); Aspartate Amino Transferase 54 U/L (17-59); Bilirubin,Total 0.3 mg/dL (0.2-1.3); Blood Urea Nitrogen 17 mg/dL (9-20); Calcium 7.6 mg/dL (8.4-10.2); Carbon Dioxide 32 mmol/L (22-30); Chloride 98 mmol/L (98-107); Estimated CRCL calculation 81 ml/min; Estimated Glomerular Filt Rate > 60; Glucose 76 mg/dL (75-110); Potassium 3.4 mmol/L (3.4-5.0); Sodium 132 mmol/L (137-145)
[2020-12-12 05:33] VITALS: BP 106/72; PULSE 87; RESP 20; TEMP 36.2; O2SAT 94
[2020-12-12] MEDS: metroNIDAZOLE 500 MG/ISO 100ML 500 MG/100 ML BAG 100 MG IVPB ×3 (05:38→17:09)
[2020-12-12] MEDS: LEVOTHYROXINE SODIUM 125 MCG TABLET PO (05:39)
[2020-12-12] MEDS: CENTRAL LINE FLUSH 10 ML IV PUSH ×2 (05:40→13:48)
--- NOTE | 2020-12-12 08:31 | PM.IMPN ---
Progress Note: A&P Assessment and Plan (1) Cholecystitis: Code(s): K81.9 - Cholecystitis, unspecified Status: Acute Assessment and Plan: AST peaked at 133 and ALT at 129 before trending down. Probable mild shock liver. Levels worsened on 12/09 to 200 and 205 respectfully. RUQ US 12/02 showing distended GB with mild GB wall thickening. Lipitor held. Flagyl started and Rocephin continued. Repeat RUQ US 12/10 showing distended GB with sludge and wall thickening, which is indeterminate for acute cholecystitis. He does have RUQ pain and elevated WBC which is better with the addition of Flagyl. General surgery consulted and appreciate their input. HIDA scan has returned and is consistent with acute cholecystitis. Patieint with more pain today. WBC and LFTs still trending down. Patient may need percutaneous drain; will make NPO. Discussed with GenSurg. CT A/P obtained showing acute cholecystitis and rectosigmoid fluid and wall edema with mild presacral fat stranding. RN states patient having intermittent large clear mucoid stools. Bili is normal. LFTs better since starting flagyl. Patient eating normally. Odd since iron should cause dark stools and bili level normal unless mucoid fluid coming from somewhere else. Steatorrhea probably but why pale unless decreased bile salts. Consider infectious etiology with mucous from the colon which should improve with Flagyl. Check for celiac. Check stool cx. Consider MRCP. (2) Elevated LFTs: Code(s): R79.89 - Other specified abnormal findings of blood chemistry Status: Acute Assessment and Plan: AST peaked at 133 and ALT at 129 before trending down. Probable mild shock liver. Levels worsened on 12/09 at 200 and 205 respectfully. [place] related to acute cholecystitis. Levels improving since adding Flagyl. As above (3) Septic shock: Code(s): A41.9 - Sepsis, unspecified organism; R65.21 - Severe sepsis with septic shock Status: Resolved Assessment and Plan: Related to the UTI +/- GB disease made worse by the steroids (adrenal suppression?) and CLARA. Did require Levophed fo about 2 days until able to be weaned off. Symptoms resolved. 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 Cortisol level was >123 on 12/01/20 and >61 the following morning. Repeat cortisol level 12/09 was 21.6. Wean off prednisone slowly. (5) Acute kidney injury: Code(s): N17.9 - Acute kidney failure, unspecified Status: Resolved Assessment and Plan: Cr 4.9 on admission. Sutton catheter placed. Renal US showing no hydronephrosis. CLARA likely related to septic shock, hypotension, hypovolemia, diuretic use and ibuprofen. Creatinine improved to normal. Monitor closely. Sutton removed and patient voiding well and Cr remaining normal. Watch for urine retention. (6) Urinary tract infection: Code(s): N39.0 - Urinary tract infection, site not specified Status: Acute Assessment and Plan: UCx growing Klebsiella aerogens sensitive to Rocephin. BCx negative. Repeat UA 12/07 noted and UCx negative. Sutton removed and voiding well. Completed abx for UTI. Continue to monitor. (7) Elevated troponin: Code(s): R77.8 - Other specified abnormalities of plasma proteins Status: Acute Assessment and Plan: Troponin 0.141 on admisison and trended down. EKG showing no acute ischemic changes. [place] patient had a Type II [place] from the septic shock. Continue to monitor (8) Abnormal chest x-ray: Code(s): R93.89 - Abnormal findings on diagnostic imaging of other specified body structures Status: Acute Assessment and Plan: CXR on admission showing patchy mid and lower lung field infiltrates, probably atelectasis. [place]
[2020-12-12] MEDS: predniSONE 5 MG TABLET PO (09:05)
[2020-12-12] MEDS: predniSONE 1 MG TABLET 4 MG PO (09:05)
[2020-12-12] MEDS: FERROUS SULFATE 324 MG TABLET PO ×2 (09:05→17:09)
[2020-12-12] MEDS: FINASTERIDE 5 MG TABLET PO (09:06)
[2020-12-12] MEDS: VENLAFAXINE HCL XR 75 MG CAP.ER.24H PO (09:06)
[2020-12-12] MEDS: CLOPIDOGREL BISULFATE 75 MG TABLET PO (09:06)
[2020-12-12] MEDS: ASPIRIN 81 MG ENTERIC TABLET PO (09:06)
[2020-12-12] MEDS: SACCHAROMYCES BOULARDII 250 MG CAPSULE PO ×3 (09:06→17:09)
[2020-12-12] MEDS: FAMOTIDINE 20 MG TABLET PO (09:06)
--- NOTE | 2020-12-12 10:52 | PM.PNGS ---
Progress Note: A&P Assessment and Plan (1) Cholecystitis: Code(s): K81.9 - Cholecystitis, unspecified Status: Acute Assessment and Plan: Cholecystitis without any evidence of cholelithiasis. Cholestasis and sludge likely a result of the septic shock and acute illness. Will get a CT abd/pelvis today to assess for cause of obstructed cystic duct. If no stones present, this should likely resolve on its own. WBC and LFT's normalizing and patient does not appear acutely ill any longer. Would reserve cholecystostomy tube for only if having severe pain, increased WBC or LFTs. Surgery will be higher risk given his comorbidities. (2) Urinary tract infection: Code(s): N39.0 - Urinary tract infection, site not specified Status: Acute (3) Acute kidney injury: Code(s): N17.9 - Acute kidney failure, unspecified Status: Resolved (4) Elevated LFTs: Code(s): R79.89 - Other specified abnormal findings of blood chemistry Status: Acute (5) Cerebrovascular accident: Code(s): I63.9 - Cerebral infarction, unspecified Status: Acute Subjective Subjective Date/Time Seen: 12/12/20 10:52 Interval history: Patient states he is a little tender in the upper abdomen today. Tolerated breakfast. No fevers. Exam GI: Inspection: normal to inspection and non-distended GI Palp: Yes Tenderness to palpation present (GI) (Mild RUQ), No Guarding due to palpation present (GI) and No Rebound tenderness present Percussion: Yes normal to percussion Auscultation: normal bowel sounds Objective Data Vital Signs Vital Signs: Vital Signs - 24 hr 12/11/20 14:00 12/11/20 21:32 12/12/20 05:33 Temperature 36.2 C L 36.4 C L 36.2 C L Pulse Rate 89 87 87 Respiratory Rate 18 18 20 Blood Pressure 123/73 100/63 106/72 Pulse Oximetry 96 95 94 Intake/Output Intake/Output: Intake & Output 12/09/20 12/10/20 12/11/20 12/12/20 23:59 23:59 23:59 23:59 Intake Total 1270 1365 1090 800 Output Total 350 Balance 920 1365 1090 800 Meds/Results Medications: Active Medications Generic Name Dose Route Start Last Admin Trade Name Freq PRN Reason Stop Dose Admin Alteplase, Recombinant 2 mg 12/10/20 12:00 12/10/20 15:40 Alteplase 2 Mg Vial (Cathflo) IV PUSH 2 mg ONCE PRN Administration Line Occlusion Aspirin 81 mg 12/02/20 09:00 12/12/20 09:06 Aspirin 81 Mg Enteric Tablet PO 81 mg DAILY BENNY Administration Clopidogrel Bisulfate 75 mg 12/02/20 09:00 12/12/20 09:06 Clopidogrel Bisulfate 75 Mg Tablet PO 75 mg DAILY BENNY Administration Enoxaparin Sodium 40 mg 12/10/20 18:00 12/11/20 17:38 Enoxaparin 40 Mg/0.4 Ml Syringe SUB-Q 40 mg Q24H BENNY Administration Famotidine 20 mg 12/02/20 09:00 12/12/20 09:06 Famotidine 20 Mg Tablet PO 20 mg DAILY BENNY Administration Ferrous Sulfate 324 mg 12/10/20 17:00 12/12/20 09:05 Ferrous Sulfate 324 Mg Tablet PO 324 mg BIDWM BENNY Administration Finasteride 5 mg 12/02/20 09:00 12/12/20 09:06 Finasteride 5 Mg Tablet PO 5 mg QAM BENNY Administration Ceftriaxone Sodium/Dextrose 1 gm in 50 mls @ 100 mls/hr 12/02/20 09:00 12/12/20 09:07 Rocephin 1 Gm/D5w 50 Ml IVPB 100 mls/hr QAM BENNY Administration Metronidazole 500 mg in 100 mls @ 100 mls/hr 12/09/20 18:30 12/12/20 06:38 Flagyl 500 Mg/Iso Soln 100 Ml IVPB Infused Q6HR BENNY Infusion Levothyroxine Sodium 125 mcg 12/02/20 09:00 12/12/20 05:39 Levothyroxine Sodium 125 Mcg Tablet PO 125 mcg DAILY@0630 BENNY Administration Miconazole Nitrate 1 applic 12/09/20 21:00 12/12/20 09:06 Miconazole 2% Antifungal Ointment 56 Gm TOPICAL 1 applic Q12HR BENNY Administration Prednisone 4 mg 12/09/20 08:00 12/12/20 09:05 Prednisone 1 Mg Tablet PO 4 mg DAILY@0800 BENNY Administration Prednisone 5 mg 12/09/20 08:00 12/12/20 09:05 Prednisone 5 Mg Tablet PO 5 mg DAILY@0800 BENNY Administration Sacch
[2020-12-12 14:00] VITALS: BP 113/68; PULSE 78; RESP 19; TEMP 36; O2SAT 100
[2020-12-12] MEDS: ENOXAPARIN 40 MG/0.4 ML SYRINGE SUB-Q (17:09)
[2020-12-12 19:48] LABS: SARS-CoV-2 RNA PCR Negative
[2020-12-12] MEDS: SERTRALINE HCL 50 MG TABLET 100 MG PO (20:45)
[2020-12-12 21:06] VITALS: BP 105/59; PULSE 81; RESP 20; TEMP 36.1; O2SAT 94
--- NOTE | 2020-12-12 23:49 | PC.NURSE ---
Sent stool specimen to lab. Was just called and said it was needed to be repeated there is not enough stool.
[2020-12-13] MEDS: metroNIDAZOLE 500 MG/ISO 100ML 500 MG/100 ML BAG 100 MG IVPB ×3 (01:05→11:22)
[2020-12-13] MEDS: CENTRAL LINE FLUSH 10 ML IV PUSH ×2 (01:05→05:46)
[2020-12-13] MEDS: CENTRAL LINE FLUSH 20 ML IV PUSH (05:46)
[2020-12-13] MEDS: LEVOTHYROXINE SODIUM 125 MCG TABLET PO (05:47)
[2020-12-13 06:00] VITALS: BP 108/64; PULSE 84; RESP 18; TEMP 36.1; O2SAT 95
[2020-12-13 06:11] LABS: Hematocrit 26.9 % (42.0-52.0); Hemoglobin 8.7 g/dL (14.0-18.0); Mean Corpuscular HGB Conc 32.3 g/dl (32-36); Mean Corpuscular Hemoglobin 30.3 pg (26-34); Mean Corpuscular Volume 93.7 fl (80-100); Mean Platelet Volume 8.9 fl (7.4-10.4); Platelet Count Result 435 k/mm3 (150-375); Red Blood Count 2.87 M/mm3 (4.6-6.20); Red Cell Distribution Width 17.2 % (11.5-14.5); White Blood Count 10.3 K/mm3 (4.5-10.0)
[2020-12-13 06:43] LABS: Alanine Aminotransferase 76 U/L (4-50); Albumin Level 2.5 g/dL (3.5-5.1); Alkaline Phosphatase 112 U/L (38-126); Anion Gap 1 mmol/L (8-16); Aspartate Amino Transferase 38 U/L (17-59); Bilirubin,Total 0.2 mg/dL (0.2-1.3); Blood Urea Nitrogen 13 mg/dL (9-20); CRP 5.4 mg/dL (<1.0); Calcium 7.8 mg/dL (8.4-10.2); Carbon Dioxide 31 mmol/L (22-30); Chloride 100 mmol/L (98-107); Estimated CRCL calculation 92 ml/min; Estimated Glomerular Filt Rate > 60; Glucose 75 mg/dL (75-110); Sodium 132 mmol/L (137-145)
[2020-12-13] MEDS: POTASSIUM CHLORIDE 20 MEQ PACKET (FOR LIQUID) 40 MEQ PO (08:44)
[2020-12-13] MEDS: predniSONE 1 MG TABLET 4 MG PO (08:47)
[2020-12-13] MEDS: FERROUS SULFATE 324 MG TABLET PO (08:47)
[2020-12-13] MEDS: ASPIRIN 81 MG ENTERIC TABLET PO (08:48)
[2020-12-13] MEDS: CLOPIDOGREL BISULFATE 75 MG TABLET PO (08:48)
[2020-12-13] MEDS: FINASTERIDE 5 MG TABLET PO (08:48)
[2020-12-13] MEDS: predniSONE 5 MG TABLET PO (08:48)
[2020-12-13] MEDS: FAMOTIDINE 20 MG TABLET PO (08:49)
[2020-12-13] MEDS: VENLAFAXINE HCL XR 75 MG CAP.ER.24H PO (08:49)
[2020-12-13] MEDS: SACCHAROMYCES BOULARDII 250 MG CAPSULE PO ×2 (08:49→12:47)
--- NOTE | 2020-12-13 12:13 | PM.PNGS ---
Progress Note: A&P Assessment and Plan (1) Cholecystitis: Code(s): K81.9 - Cholecystitis, unspecified Status: Acute Assessment and Plan: I reviewed the CT from yesterday. Gallbladder is still dilated, but there is no cause for obstruction other than inflammation and/or sludge. Symptomatically, he appears improved and his WBC and LFTs are improved. Okay to discharge in the low-fat diet today. If he has recurrence symptoms, and he may likely require cholecystostomy tube placement or eventual laparoscopic cholecystectomy. (2) Urinary tract infection: Code(s): N39.0 - Urinary tract infection, site not specified Status: Acute (3) Acute kidney injury: Code(s): N17.9 - Acute kidney failure, unspecified Status: Resolved (4) Elevated LFTs: Code(s): R79.89 - Other specified abnormal findings of blood chemistry Status: Acute (5) Cerebrovascular accident: Code(s): I63.9 - Cerebral infarction, unspecified Status: Acute Subjective Subjective Date/Time Seen: 12/13/20 12:13 Interval history: Tolerating diet. Pain slightly better than yesterday. No nausea or vomiting. No fevers. Exam GI: Inspection: non-distended GI Palp: Yes Tenderness to palpation present (GI) (Mild right upper quadrant), No Guarding due to palpation present (GI) and No Rebound tenderness present Objective Data Vital Signs Vital Signs: Vital Signs - 24 hr 12/12/20 14:00 12/12/20 21:06 12/13/20 06:00 Temperature 36.0 C L 36.1 C L 36.1 C L Pulse Rate 78 81 84 Respiratory Rate 19 20 18 Blood Pressure 113/68 105/59 L 108/64 Pulse Oximetry 100 94 95 Intake/Output Intake/Output: Intake & Output 12/10/20 12/11/20 12/12/20 12/13/20 23:59 23:59 23:59 23:59 Intake Total 1365 1090 1890 470 Balance 1365 1090 1890 470 Meds/Results Medications: Active Medications Generic Name Dose Route Start Last Admin Trade Name Freq PRN Reason Stop Dose Admin Alteplase, Recombinant 2 mg 12/10/20 12:00 12/10/20 15:40 Alteplase 2 Mg Vial (Cathflo) IV PUSH 2 mg ONCE PRN Administration Line Occlusion Aspirin 81 mg 12/02/20 09:00 12/13/20 08:48 Aspirin 81 Mg Enteric Tablet PO 81 mg DAILY BENNY Administration Clopidogrel Bisulfate 75 mg 12/02/20 09:00 12/13/20 08:48 Clopidogrel Bisulfate 75 Mg Tablet PO 75 mg DAILY BENNY Administration Enoxaparin Sodium 40 mg 12/10/20 18:00 12/12/20 17:09 Enoxaparin 40 Mg/0.4 Ml Syringe SUB-Q 40 mg Q24H BENNY Administration Famotidine 20 mg 12/02/20 09:00 12/13/20 08:49 Famotidine 20 Mg Tablet PO 20 mg DAILY BENNY Administration Ferrous Sulfate 324 mg 12/10/20 17:00 12/13/20 08:47 Ferrous Sulfate 324 Mg Tablet PO 324 mg BIDWM [facility] Administration Finasteride 5 mg 12/02/20 09:00 12/13/20 08:48 Finasteride 5 Mg Tablet PO 5 mg QAM BENNY Administration Ceftriaxone Sodium/Dextrose 1 gm in 50 mls @ 100 mls/hr 12/02/20 09:00 12/13/20 08:48 Rocephin 1 Gm/D5w 50 Ml IVPB 100 mls/hr QAM BENNY Administration Metronidazole 500 mg in 100 mls @ 100 mls/hr 12/09/20 18:30 12/13/20 11:22 Flagyl 500 Mg/Iso Soln 100 Ml IVPB 100 mls/hr Q6HR BENNY Administration Levothyroxine Sodium 125 mcg 12/02/20 09:00 12/13/20 05:47 Levothyroxine Sodium 125 Mcg Tablet PO 125 mcg DAILY@0630 [facility] Administration Miconazole Nitrate 1 applic 12/09/20 21:00 12/13/20 08:49 Miconazole 2% Antifungal Ointment 56 Gm TOPICAL 1 applic Q12HR [facility] Administration Prednisone 4 mg 12/09/20 08:00 12/13/20 08:47 Prednisone 1 Mg Tablet PO 4 mg DAILY@0800 [facility] Administration Prednisone 5 mg 12/09/20 08:00 12/13/20 08:48 Prednisone 5 Mg Tablet PO 5 mg DAILY@0800 [facility] Administration Saccharomyces Boulardii 250 mg 12/06/20 13:00 12/13/20 08:49 Saccharomyces Boulardii 250 Mg Capsule PO 250 mg TID BENNY Administration Sertraline HCl 100 mg 12/02/20 21:00 12/12/20 20:45 Sert
[2020-12-13 14:00] VITALS: BP 100/62; PULSE 68; RESP 18; TEMP 36.9; O2SAT 99
--- NOTE | 2020-12-13 14:23 | PM.DS ---
DS: Admitting Diagnosis Admitting Diagnosis Admitting Diagnosis: Hypoxia DS: Discharge Diagnosis Discharge Diagnosis (1) Cholecystitis: Code(s): K81.9 - Cholecystitis, unspecified Status: Acute Assessment and Plan: AST peaked at 133 and ALT at 129 before trending down felt related to mild shock liver. Levels worsened on 12/09/20 to 200 and 205 respectfully. RUQ US 12/02 showing distended GB with mild GB wall thickening. Lipitor held. Flagyl started and Rocephin continued. Repeat RUQ US 12/10 showing distended GB with sludge and wall thickening, which is indeterminate for acute cholecystitis. He does have RUQ pain and elevated WBC which is better with the addition of Flagyl. General surgery consulted. HIDA scan has returned and is consistent with acute cholecystitis. CT A/P obtained showing acute cholecystitis and rectosigmoid fluid and wall edema with mild presacral fat stranding. RN states patient having intermittent large clear mucoid stools. Bili is normal. Steatorrhea probably but why pale unless decreased bile salts. Consider infectious etiology with mucous from the colon which should improve with Flagyl. Stool studies pending. Low fat diet started and patient tolerated this well with minimal abd pain. WBC and LFTs still trending down. Plan to continue Flagyl. Patient to return to ER if having worsening abdominal pain. (2) Elevated LFTs: Code(s): R79.89 - Other specified abnormal findings of blood chemistry Status: Acute Assessment and Plan: AST peaked at 133 and ALT at 129 before trending down felt related to mild shock liver. Levels worsened on 12/09/20 to 200 and 205 respectfully. [place] related to acute cholecystitis. Levels improving since adding Flagyl. As above (3) Septic shock: Code(s): A41.9 - Sepsis, unspecified organism; R65.21 - Severe sepsis with septic shock Status: Resolved Assessment and Plan: Related to the UTI +/- GB disease made worse by the steroids (adrenal suppression?) and CLARA. He did require Levophed fo about 2 days but able to be weaned off. Symptoms resolved. Patient was never significantly hypoxic here. 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 Cortisol level was >123 on 12/01/20 and >61 the following morning. Repeat cortisol level 12/09 was 21.6. Weaning off prednisone slowly. (5) Acute kidney injury: Code(s): N17.9 - Acute kidney failure, unspecified Status: Resolved Assessment and Plan: Cr 4.9 on admission. Sutton catheter placed. Renal US showing no hydronephrosis. [place] likely related to septic shock, hypotension, hypovolemia, diuretic use and ibuprofen. Creatinine improved to normal. Sutton removed and patient voiding well and Cr remaining normal. (6) Urinary tract infection: Code(s): N39.0 - Urinary tract infection, site not specified Status: Acute Assessment and Plan: UCx growing Klebsiella aerogens sensitive to Rocephin. BCx negative. Repeat UA 12/07 noted and UCx negative. Sutton removed and voiding well. Completed abx for UTI. (7) Elevated troponin: Code(s): R77.8 - Other specified abnormalities of plasma proteins Status: Acute Assessment and Plan: Troponin 0.141 on admission and trended down. EKG showing no acute ischemic changes. [place] patient had a Type II [place] from the septic shock. (8) Abnormal chest x-ray: Code(s): R93.89 - Abnormal findings on diagnostic imaging of other specified body structures Status: Acute Assessment and Plan: CXR on admission showing patchy mid and lower lung field infiltrates, probably atelectasis. Most recent CXR no active disease. Remained on room air. (9) Chronic anemia: Code(s): D64.9 - Anemia, unspe
--- NOTE | 2020-12-18 08:12 | PC.NURSE ---
stool cx is negative
[2020-12-19 15:23] LABS: Gliadin AB, IgG 4 Units (<20); Reticulin IgA Negative (Negative); TTG IGA AB 1 U/mL (<4)
== END 2020-12-13 18:15 | DRG 871 ==
LOC: ANHED 12:52 → ANHICU 12-02 13:52 → ANH2MED 12-10 13:49 → ANHICU 12-15 10:41
PROVIDERS: Family Medicine; Internal Medicine; Physician Assistant; Admitting Provider Family Medicine; Emergency Provider Emergency Medicine; PCP Emergency Medicine; Visit Provider Internal Medicine
DX: A41.9 Sepsis, unspecified organism (principal); R65.21 Severe sepsis with septic shock; N39.0 Urinary tract infection, site not specified; N17.9 Acute kidney failure, unspecified; I69.951 Hemiplegia and hemiparesis following unspecified cerebrovascular disease affecting right dominant side; D68.59 Other primary thrombophilia; E24.9 Cushing's syndrome, unspecified; K81.0 Acute cholecystitis; B96.89 Other specified bacterial agents as the cause of diseases classified elsewhere; Z20.822 Contact with and (suspected) exposure to COVID-19; Z86.16 Personal history of COVID-19; R19.7 Diarrhea, unspecified; R79.89 Other specified abnormal findings of blood chemistry; R77.8 Other specified abnormalities of plasma proteins; R93.89 Abnormal findings on diagnostic imaging of other specified body structures; I65.22 Occlusion and stenosis of left carotid artery; D64.9 Anemia, unspecified; N40.0 Benign prostatic hyperplasia without lower urinary tract symptoms; I10 Essential (primary) hypertension; E03.9 Hypothyroidism, unspecified; I25.10 Atherosclerotic heart disease of native coronary artery without angina pectoris; I25.2 Old myocardial infarction; E78.5 Hyperlipidemia, unspecified; K21.9 Gastro-esophageal reflux disease without esophagitis; F41.8 Other specified anxiety disorders; Z79.52 Long term (current) use of systemic steroids; Z79.82 Long term (current) use of aspirin; Z79.899 Other long term (current) drug therapy; Z87.891 Personal history of nicotine dependence; Z95.5 Presence of coronary angioplasty implant and graft
CPT/HCPCS: 36415; 36556; 36600; 51701; 71045; 74176; 76705; 76775; 78226; 80048; 80053; 80074; 81001; 82375; 82436; 82533; 82550; 82570; 82607; 82728; 82746; 82805; 83050; 83516; 83540; 83550; 83605; 83690; 83735; 83880; 84100; 84132; 84133; 84300; 84439; 84443; 84484; 85025; 85027; 85610; 85730; 85999; 86140; 86255; 87015; 87040; 87045; 87046; 87077; 87086; 87088; 87186; 87269; 87272; 87324; 87427; 93005; 96361; 96374; 96375; 97110; 97161; 97165; 97530; 97535; 99291; A9270; A9537; C1751; C9803; J0456; J0696; J1650; J2270; J2405; J2997; J3475; J3480; J7030; J7040; J7070; J7512; U0003; U0005